=== PATIENT | female | born 1970 | race Caucasian/White ===

== ENCOUNTER → 2019-12-18 12:24 | Outpatient (CLI) | payer BC, SELFPAY ==
--- NOTE | ~2019-12-18 | MR_ITS ---
EXAMINATION: MR shoulder LT wo con DATE: 12/18/2019 13:00 INDICATION: Left shoulder pain and limited range of motion TECHNIQUE: Magnetic resonance imaging (MRI) of the left shoulder was performed without intravenous co ntrast. Sequences included axial PD-weighted FS FSE, coronal oblique PD-weighted FS FSE, coronal obli que T2-weighted FS FSE, sagittal PD-weighted FS FSE, and sagittal T1-weighted SE. COMPARISON: None. FINDINGS: Coracoacromial arch: The acromion undersurface is curved in morphology (type II). The coracoacromial ligament is normal. M inimal acromioclavicular osteoarthritis. Rotator cuff: Prior supraspinatus tendinopathy and mild anterior infraspinatus tendinopathy. Small tear at the post erior aspect of the superior facet footplate of the supraspinatus tendon appears to involve approxima tely two thirds of the tendon thickness. The intrasubstance portion of the tear measures up to 4 mm A P tapering to 1 mm in AP with the bursal surface. There is a second small fluid signal intensity tear defect measuring approximately 2 mm in maximal dimensions located approximately 1 cm medial from the footplate of the conjoined portion of the tendon. The teres minor tendon is normal. Mild subscapular is tendinopathy without discrete tear. There is thickening of the biceps jannette sling at the rotator cuff interval. Normal rotator cuff muscle bulk and signal. Biceps tendon, glenoid labrum and glenohumeral cartilage: Long head of the biceps tendon is normal. The posterior superior glenoid labrum appears diminutive bu t without discrete tear. Glenohumeral cartilage is normal. Fluid: Physiologic amount of fluid in the glenohumeral joint and biceps tendon sheath. No loose osteochondra l bodies. Moderate amount of fluid and mild synovitis in the subacromial/subdeltoid bursa consistent with moderate bursitis. Bones: Normal marrow signal with no edema, fracture or pathologic marrow replacing process. IMPRESSION: 1. Supraspinatus and mild infraspinatus tendinopathy with very small partial-thickness tears at the a rticular side of the posterior supraspinatus tendon and articular side of the slightly more medial an d posterior anterior infraspinatus tendon. No contiguous full-thickness tear defect appreciated. 2. Thickening of the superior glenohumeral ligament portion of the biceps jannette sling which can be s een with adhesive capsulitis although there is no evident thickening of the inferior capsule which is also atypical finding of adhesive capsulitis. Alternatively this could represent partial tear of the bicipital place layering. 3. Posterosuperior glenoid appears diminutive which could be either developmental or degenerative wit h no discrete tear plane appreciated. 4. Moderate subacromial/subdeltoid bursitis. Reviewed, dictated and finalized at location A. K SETTER OPERATOR IMPRESSION: 1. Supraspinatus and mild infraspinatus tendinopathy with very small partial-th ickness tears at the articular side of the posterior supraspinatus tendon and a rticular side of the slightly more medial and posterior anterior infraspinatus tendon. No contiguous full-thickness tear defect appreciated. 2. Thickening of the superior glenohumeral ligament portion of the biceps pulle y sling which can be seen with adhesive capsulitis although there is no evident thickening of the inferior capsule which is also atypical finding of adhesive capsulitis. Alternatively this could represent partial tear of the bicipital pl daniel layering. 3. Posterosuperior glenoid appears diminutive which could be either development al or degenerative with no discrete tear plane appreciated. 4. Moderate subacromial/subdeltoid bursitis.
== END ==
PROVIDERS: PCP Internal Medicine; Visit Provider Orthopaedic Surgery
DX: M75.82 Other shoulder lesions, left shoulder (principal); M75.112 Incomplete rotator cuff tear or rupture of left shoulder, not specified as traumatic; M75.52 Bursitis of left shoulder
CPT/HCPCS: 73221

== ENCOUNTER 2020-03-02 00:23 | Outpatient (CLI) | payer BC, SELFPAY ==
[2020-03-02 16:18] LABS: SARS-CoV-2 RNA PCR Negative
== END 2020-03-02 00:24 | disposition home or self-care (01) ==
PROVIDERS: PCP Family Medicine; Visit Provider Orthopaedic Surgery
DX: Z01.818 Encounter for other preprocedural examination (principal); Z11.59 Encounter for screening for other viral diseases
CPT/HCPCS: 87635; C9803; U0003

== ENCOUNTER 2020-03-02 08:57 | Outpatient (CLI) | payer BC, SELFPAY ==
--- NOTE | 2020-03-02 09:08 | ECG_ITS ---
Measurements Intervals [place] Rate: 53 P: 36 SC: 168 QRS: -3 QRSD: 93 T: 22 QT: 425 QTc: 403 Interpretive Statements SINUS BRADYCARDIA DELAYED PRECORDIAL R/S TRANSITION BORDERLINE ECG Electronically Signed On 03-02-2020 14:48:55 CDT by Timo Holder D.O.
== END 2020-03-02 08:58 | disposition home or self-care (01) ==
LOC: ANHLAB 08:58
PROVIDERS: PCP Internal Medicine; Visit Provider Anesthesiology
DX: Z01.810 Encounter for preprocedural cardiovascular examination (principal); M75.82 Other shoulder lesions, left shoulder; R00.1 Bradycardia, unspecified
CPT/HCPCS: 93005

== ENCOUNTER 2020-03-05 00:29 | Day surgery (SDC) | payer BC, SELFPAY ==
[2020-02-28 10:39] VITALS: BMI 32.7
[2020-03-05] VITALS (8 sets, daily range): BP systolic 122–140; BP diastolic 62–93; PULSE 60–67; RESP 12–20; TEMP 36.2–36.8; O2SAT 95–100
--- NOTE | 2020-03-05 07:28 | PM.HPGS ---
History of Present Illness History of Present Illness Consent: Risks, benefits, and alternatives have been discussed and questions answered. Patient agrees to proceed with procedure. Chief complaint: left partial thick rotator cuff tear, impingement Narrative: Malinda Fernandes is a 49 year old female who complains of aching pain in the lateral deltoid area. Worse with overhead activities. Complains of weakness. Also night pain. Partial temporary benefit from an injection and PT. Review of Systems Constitutional: Constitutional: Denies no additional constitutional complaints Respiratory: Respiratory: Denies cough and Denies dyspnea PMFSH Past Medical History Medical History Benign essential hypertension Rhus dermatitis Rotator cuff impingement syndrome of left shoulder Surgical History Surgical History Partial tear of left rotator cuff Family History Family History Father Acute myocardial infarction, Onset Age: 59 Family history of chronic obstructive pulmonary disease, Onset Age: 59 Grandparent Family history of malignant neoplasm Family history of renal failure Mother Patient's mother is in good health Social History Social History Smoking status: Never smoker Second hand tobacco smoke exposure: No Alcohol intake: current Gender identity (if verbalized by the patient): Female Meds Home Medications and Allergies Home Medications Medication Instructions Recorded Confirmed Type nebivolol 10 mg tablet 10 mg PO DAILY 11/03/19 03/05/20 History venlafaxine 75 mg capsule,extended 75 mg PO DAILY 11/03/19 03/05/20 History release 24 hr aspirin [Adult Low Dose Aspirin] 81 mg PO DAILY 02/28/20 02/28/20 History Allergies Allergy/AdvReac Type Severity Reaction Status Date / Time No Known Allergies Allergy Unknown Verified 03/05/20 08:42 Exam Narrative: Exam Narrative: Normal gait and station. In no distress. No clinical deformity. Exquisite tenderness at the rotator cuff insertion. Active elevation 170?. Significant painful arc of motion. External rotation 80?, internal rotation L2. No instability. No apprehension. Speed's test negative. Supraspinatus strength 4/5, external rotation strength 5/5. Pain with resistance. No effusion. No warmth or erythema. No swelling. AC joint nontender. Cross-arm test negative. Negative belly press test. Elbow full range of motion. Normal debone supervisor strength. Radial pulse palpable. Light touch sensation intact. Normal cervical spine motion without pain. Normal scapular mechanics. MRI shows Partial thickness tear of the supraspinatus, and impingment is evident. Assessment and Plan Assessment and plan (1) Partial tear of left rotator cuff: Qualifiers: Rotator cuff tear trauma status: nontraumatic Qualified Code(s): M75.112 - Incomplete rotator cuff tear or rupture of left shoulder, not specified as traumatic Code(s): M75.112 - Incomplete rotator cuff tear or rupture of left shoulder, not specified as traumatic Status: Acute (2) Rotator cuff impingement syndrome of left shoulder: Code(s): M75.42 - Impingement syndrome of left shoulder Status: Acute Additional Plan High-grade partial tear. Will consider completing the tear versus in situ repair. Possible collagen implant. Failed conservative treatment. The symptoms remain significant, including pain with activities of daily living. We discussed the conservative and alternative treatment options. The risks, benefits, and alternatives have been reviewed. The patient wishes to proceed with arthroscopic rotator cuff repair, subacromial decompression and proceed as indicated.
[2020-03-05] MEDS: LACTATED RINGERS 1,000 ML 30 ML IV CONT ×2 (08:50→11:58)
--- NOTE | 2020-03-05 08:54 | WPDANESEPPF ---
Anes - Initial Pre Proc Eval Procedure: Operation Date: 03/05/20 10:30 Proposed Procedures p Left Shoulder Arthroscopic Subacromial Decompression, Proceed As Indicated, Possible [place] - Otilio Villalobos MD Date/Time: 03/05/20 08:54 Surgeon: Otilio Villalobos MD Pre Op Diagnosis: left partial thick rotator cuff tear, impingement Patient Data Age: 49 Gender: F Height: 5 ft 6 in Weight: 94.5 kg Allergies Allergy/AdvReac Type Severity Reaction Status Date / Time No Known Allergies Allergy Unknown Verified 03/05/20 08:42 Home Medications Medication Instructions Recorded Confirmed Type nebivolol 10 mg tablet 10 mg PO DAILY 11/03/19 03/05/20 History venlafaxine 75 mg capsule,extended 75 mg PO DAILY 11/03/19 03/05/20 History release 24 hr aspirin [Adult Low Dose Aspirin] 81 mg PO DAILY 02/28/20 02/28/20 History Patient hx anesthesia problems: none Family hx anesthesia problems: none PMFSH Past Medical History Medical History Benign essential hypertension Rhus dermatitis Rotator cuff impingement syndrome of left shoulder Surgical History Surgical History Partial tear of left rotator cuff Family History Family History Father Acute myocardial infarction, Onset Age: 59 Family history of chronic obstructive pulmonary disease, Onset Age: 59 Grandparent Family history of malignant neoplasm Family history of renal failure Mother Patient's mother is in good health Social History Social History Smoking status: Never smoker Second hand tobacco smoke exposure: No Alcohol intake: current Gender identity (if verbalized by the patient): Female Anes - Eval Final PreProcedure Day of Procedure 03/05/20 08:54 Patient weight: obese Heart: regular rate and rhythm Lungs: clear to auscultation Airway: Mallampati scale class II Neurological: alert and oriented Last oral intake: >/= 8 hours ASA classification: II Emergent: no Anesthetic plan: proceed Anesthesia type and monitoring: general ETT and standard monitoring Informed Consent: The patient's anesthetic plan and its attendant risks and benefits were discussed with the patient/family/POA. Questions were solicited and answers provided to the satisfaction of the patient/family/POA.
--- NOTE | 2020-03-05 09:40 | WPDANESPNB ---
Anes - Peripheral Nerve Block Date/Time: 03/05/20 09:40 I have discussed with the patient/family/POA the placement of a peripheral nerve block for post-operative pain management, including associated risks, benefits, complications, and side effects. Alternative methods of post-operative analgesia were detailed. Questions were solicited and answers provided to the satisfaction of the patient/family/POA. Time-Out: A pre-procedural Time-Out was completed immediately before starting the procedure and confirmed: Patient Identification, Site, Procedure, Patient Position and the Availability of Requisite Equipment. Clinical Indications: Acute post-operative pain management requested by the operative surgeon. Nerve Block Insertion Note Anes-nerve block: interscalene left Patient position: supine Needle: 22 gauge, stimulating, insulated echogenic needle. Needle length: 50 mm Technique: nerve stimulation lost at (mA) (0.25) and ultrasound Injectate: bupivacaine 0.5% with epi 5 mcg/ml (30) and dexamethasone (mg) (8) Observations: tolerated well Complications: none Procedure start time:: 932 Procedure end time:: 940
[2020-03-05] MEDS: ceFAZolin 2 GM/D5W 50 ML 2 GM/50 ML BAG IVPB (09:46)
--- NOTE | 2020-03-05 12:51 | SUR.PHASEI ---
PT AWAKE AND ALERT. READY TO GET PO FLUIDS
--- NOTE | 2020-03-05 14:23 | P.OP_ITS ---
Procedure Note - Detailed Date of procedure: 03/05/20 Pre-op diagnosis: left partial thick rotator cuff tear, impingement Post-op diagnosis: other (1. Full thickness Rotator Cuff Tear 2. Subacromial impingement ) Procedure performed: 1. Arthrosocopic rotator cuff repair. 2. Arthroscopic subacromial decompression. Implants: Wray [employer] Nephew double loaded helix anchor 4.75 mm. Anesthesia: GETA and regional Surgeon: Otilio Villalobos MD Estimated blood loss (mL): 20 Complications: None Disposition: PACU Findings: Operative detail: Preoperative antibiotics were given. An interscalene block was administered in the preoperative area. The patient was bought brought to the operating room. A general anesthetic was administered. The patient was carefully positioned in the beach chair position. The head and neck were carefully positioned. The non operative extremity was also carefully positioned. The shoulder was prepped and draped in the usual sterile fashion. Examination was performed. There were no abnormal findings. Standard posterior and anterior arthroscopic portals were established. Inflow achieved with the arthroscopic pump using saline and epinephrine. The glenohumeral joint was carefully inspected. There was degen erative fraying of the superior labrum without instability. The biceps tendon was intact. Attention was turned to the subacromial space. A complete bursectomy was performed. The bursa was significantly thickened and inflamed. The rotator cuff tear was complete at this supraspinatus attachment. The exposed bone was a narrow area when viewed from the bursal side, but was a bit more significant from the articular side. There was also a small rent in the rotator cuff more medial. The rotator cuff and footprint were lightly debrided. A modest acromioplasty was performed. The tear configuration was carefully assessed. The tear appeared amenable to a single anchor with modified Holland- Connor repair. This worked very well at reapproximating the anterior and posterior aspect of the tear anatomically. The Wray and Nephew helix anchor was used 4.7 mm. A [id number] stitch was placed more medially at the split in the tendon tissue. The spinal needle was placed across the tear and a number 2 PDS suture was used as a suture shuttle. This worked very well, and obtained a better tissue bite than the antegrade Passer. The arthroscopic instruments were removed. The wounds were closed with 3-0 Monocryl subcuticular suture and steri strips. There were no complications. A sling was applied and the patient brought to the recovery room.
== END 2020-03-05 14:19 | disposition home or self-care (01) ==
PROVIDERS: PCP Internal Medicine; Visit Provider Orthopaedic Surgery
PROC: (CPT 29805; principal; 2020-03-05 10:30)
DX: M75.102 Unspecified rotator cuff tear or rupture of left shoulder, not specified as traumatic (principal); M75.42 Impingement syndrome of left shoulder; G89.18 Other acute postprocedural pain; I10 Essential (primary) hypertension; Z79.82 Long term (current) use of aspirin; E66.9 Obesity, unspecified; Z68.33 Body mass index [BMI] 33.0-33.9, adult
CPT/HCPCS: 29827; 29826; 64415; C1713; J0330; J0690; J1100; J2001; J2250; J2405; J2704; J3010; J7120

== ENCOUNTER 2020-12-28 11:55 | Observation (INO) | payer BC, SELFPAY ==
[2020-12-28] VITALS (16 sets, daily range): BP systolic 113–165; BP diastolic 63–83; PULSE 45–72; RESP 12–20; TEMP 35.8–36.4; O2SAT 94–100; BMI 35.9
--- NOTE | ~2020-12-28 | US_ITS ---
EXAMINATION: US right upper quadrant DATE: 12/28/2020 15:00 INDICATION: Right upper quadrant pain TECHNIQUE: Multiple grayscale and Doppler ultrasound images of the abdomen were obtained. COMPARISON: None available FINDINGS: The head and body of the pancreas are normal. The pancreatic tail is obscured by bowel gas. The liver demonstrates increased echogenicity, heterogenous echotexture, and decreased through trans mission. No surface nodularity. Normal hepatopetal flow in the main portal vein. The gallbladder is n ormal with no abnormal wall thickening, pericholecystic fluid or stones. The normal common bile duct measures 3 mm. There was no sonographic Shah sign. IMPRESSION: 1. No sonographic correlate for the patient's symptoms. 2. Diffuse hepatic steatosis. Reviewed, dictated and finalized at location A. RIALS CLERK
--- NOTE | ~2020-12-28 | XR_ITS ---
EXAMINATION: XR chest 1V portable EXAM DATE: 12/28/2020 12:18 INDICATION: Chest pain, shortness of breath for several weeks. High blood pressure. TECHNIQUE: Portable AP frontal chest x-ray was obtained. There is no prior study for comparison. FINDINGS: The lungs are clear. There are no pleural effusions. The cardiomediastinal silhouette is within normal limits. There is no pneumothorax suspected. The bones and soft tissues are unremarkab le. IMPRESSION: No acute cardiopulmonary findings. Reviewed, dictated and finalized at location A. SING MACHINE OPERATOR
--- NOTE | 2020-12-28 12:09 | ECG_ITS ---
Measurements Intervals [place] Rate: 48 P: 25 SD: 162 QRS: -28 QRSD: 102 T: 3 QT: 422 QTc: 377 Interpretive Statements SINUS BRADYCARDIA BORDERLINE R WAVE PROGRESSION, ANTERIOR LEADS BASELINE ARTIFACT- I, II, III ABNORMAL ECG Electronically Signed On 12-28-2020 15:04:55 CAR WHACKER by Timo Holder D.O.
[2020-12-28 12:19] LABS: Basophils Absolute Auto 0.1 K/mm3 (0.0-0.1); Eosinophils Absolute Auto 0.2 K/mm3 (0-0.3); Eosinophils Percent Auto 3.8 % (0-4.4); Hematocrit 40.5 % (37.0-47.0); Hemoglobin 13.5 g/dL (12.0-15.0); Immature Granulocyte Absolute 0.02 K/mm3 (0.00-0.031); Immature Granulocyte Percent A 0.3 % (0-0.5); Lymphocytes Absolute Auto 1.87 K/mm3 (0.9-3.2); Mean Corpuscular HGB Conc 33.3 g/dl (32-36); Mean Corpuscular Hemoglobin 29.3 pg (26-34); Mean Corpuscular Volume 87.9 fl (80-100); Mean Platelet Volume 9.8 fl (7.4-10.4); Monocytes Absolute Auto 0.6 K/mm3 (0.1-0.6); Monocytes Percent Auto 9.5 % (2.6-8.5); Neutrophils Absolute Auto 3.3 K/mm3 (1.3-6.7); Neutrophils Percent Auto 54.4 % (45.5-73.1); Platelet Count Result 352 k/mm3 (150-375); Red Blood Count 4.61 M/mm3 (4.2-5.4); Red Cell Distribution Width 13.2 % (11.5-14.5)
--- NOTE | 2020-12-28 12:26 | ED.CHESTPAIN ---
HPI - Chest Pain General Chief Complaint: Shortness of Breath/Dyspnea Stated Complaint: SOB, CP Time Seen by Provider: 12/28/20 12:15 Source: patient Mode of arrival: ambulatory Limitations: no limitations History of Present Illness HPI narrative: This is a 50 year old female with history of hypertension and DM who presents for midsternal chest pressure. This pain has been present intermittently for 1 week. She states it occurs mostly with activity. She describes pain as nonradiating pressure. She reports she currently has pain 5/10 and it has been present this she woke up this morning. She has associated sob. She denies nausea, vomiting, or diaphoresis. She reports chronic abdominal pain for several months and she was diagnosed with IBS. She has strong family history of CAD. MD complaint: chest heaviness Onset (ago): week(s) (1) Related Data Home Medications Medication Instructions Recorded Confirmed aspirin [Adult Low Dose Aspirin] 81 mg PO DAILY 02/28/20 12/28/20 Allergies Allergy/AdvReac Type Severity Reaction Status Date / Time No Known Allergies Allergy Unknown Verified 12/28/20 12:00 Review of Systems Review of Systems: All systems reviewed & are unremarkable except as noted in HPI and below Constitutional: Constitutional: Denies chills and Denies fever(s) Respiratory: Respiratory: Denies cough and Reports dyspnea Gastrointestinal: Gastrointestinal: Reports abdominal pain (chronic), Denies diarrhea, Denies nausea and Denies vomiting PMFSH Past Medical History Medical History (Updated 12/28/20 @ 18:10 by Karly Song MD) Benign essential hypertension Depression Mixed hyperlipidemia Overflow stress urinary incontinence in female Status post urethral sling. Surgical History Surgical History (Updated 12/28/20 @ 14:49 by Sunitha Carter PA-C) History of repair of left rotator cuff (~03/05/20) History of suburethral sling procedure (~02/06/17) Family History Family History Father Acute myocardial infarction, Onset Age: 59 Family history of chronic obstructive pulmonary disease, Onset Age: 59 Grandparent Family history of malignant neoplasm Family history of renal failure Mother Patient's mother is in good health Social History Social History (Updated 12/28/20 @ 14:49 by Sunitha Carter PA-C) Social History: Surrogate decision maker: Dameon Fernandes, spouse. Code status: Full code. Smoking status: Never smoker Second hand tobacco smoke exposure: No Alcohol intake: current Substance use: never Additional living arrangements comments: Resides in [place] with her . Gender identity (if verbalized by the patient): Male Spiritual care concerns: No Exam Const: General: no acute distress and alert Orientation/consciousness: patient oriented x3 Eyes: Pupils: Equal, round and reactive pupils present EOM: EOMs intact bilaterally Resp: Effort & Inspection: normal respiratory effort and no retractions Auscultation: clear to auscultation bilaterally Cardio: Rate: regular rate Rhythm: regular rhythm Heart sounds: no murmurs GI: GI Palp: Yes Soft to palpation, Yes Tenderness to palpation present (GI) (epigastric) and No Guarding due to palpation present (GI) Auscultation: normal bowel sounds Skin: General skin exam: normal color Rashes: no rashes Neuro: General: patient oriented x3, moves all extremities and CN's II-XI intact bilaterally Psych: Mental Status: mental status grossly normal Affect: normal affect Course Reevaluation(s) Reevaluation #1: I discussed with patient that labs are unremarkable. Her pain is does not necessarily sound anginal but she is high risk so will admit for observation. abdomen is benign. Date: 12/28/20 Time: 14:39 Consultations Consultation #1: I discussed case with Dr. Holder. He will consult and patient will be admitted to
[2020-12-28 12:29] LABS: INR 0.9
[2020-12-28 12:38] LABS: Partial Thromboplastin Time 21.9 SECONDS (22.3-36.8)
[2020-12-28] MEDS: ASPIRIN 81 MG CHEWABLE TABLET 324 MG PO (12:48)
[2020-12-28] MEDS: NITROGLYCERIN SL 0.4 MG TABLET SUBLINGUAL (12:49)
[2020-12-28 12:55] LABS: Alanine Aminotransferase 25 U/L (4-35); Albumin Level 4.4 g/dL (3.5-5.1); Alkaline Phosphatase 77 U/L (38-126); Aspartate Amino Transferase 30 U/L (14-36); Bilirubin,Total 0.3 mg/dL (0.2-1.3); Lipase 101 U/L (23-300)
[2020-12-28 12:56] LABS: Anion Gap 6 mmol/L (8-16); Blood Urea Nitrogen 9 mg/dL (7-17); Calcium 9.1 mg/dL (8.4-10.2); Carbon Dioxide 28 mmol/L (22-30); Chloride 104 mmol/L (98-107); Estimated CRCL calculation 84 ml/min; Estimated Glomerular Filt Rate > 60; Glucose 108 mg/dL (65-105); Potassium 4.2 mmol/L (3.4-5.0); Sodium 138 mmol/L (137-145)
--- NOTE | 2020-12-28 12:58 | PC.NURSE ---
Patient reports chest pain still at 5 after first dose of nitro SL. Second dose given at this time.
[2020-12-28 13:01] LABS: D Dimer 0.31 ug/mL (<0.48)
[2020-12-28 13:06] LABS: Troponin I < 0.012 ng/mL (0.000-0.034)
--- NOTE | 2020-12-28 13:07 | PC.NURSE ---
Patient states no improvement in chest pain after second dose of nitro. Current VS 47 AK, 97% RA, RR 16 with BP 97/66. Dr. Song notified and no 3rd dose given for hypotension. Patient now c/o abdominal pain (PMH of IBS) and headache.
[2020-12-28] MEDS: LACTATED RINGERS 1,000 ML 999 ML IV CONT (13:26)
[2020-12-28] MEDS: PANTOPRAZOLE SODIUM IV 40 MG VIAL IV PUSH (13:26)
[2020-12-28] MEDS: BELLADONNA ALK/PHENOB ELIX 10 ML, MAG HYDROX/ALUMINUM HYD/SIMETH 30 ML, LIDOCAINE HCL 2... PO (13:26)
[2020-12-28] MEDS: ONDANSETRON INJ 4 MG/2 ML VIAL IV PUSH (14:27)
[2020-12-28] MEDS: MORPHINE SULFATE (*CRX) 4 MG/ML INJ 6 MG IV PUSH (14:28)
--- NOTE | 2020-12-28 15:57 | PC.NURSE ---
This patient, Malinda Fernandes, was admitted to IMU Room 204-01. Patient/family oriented to hospital policies and general routines including ID bracelet, bed and alarms, visiting hours, pain management, procedures, bathroom and other care routines, personal items, smoking policy, room service/diet, and visiting hours. Information on how to activate the Rapid Response Team has been discussed. Patient/Family are encouraged to report perceived risks to care and to ask questions if they do not understand what they are told or what they should do.
--- NOTE | 2020-12-28 16:00 | PM.IMHP ---
H&P: HPI History of Present Illness Date/Time: 12/28/20 16:00 Chief Complaint: Chest pain. Narrative: This is a 50-year-old female with hypertension, hyperlipidemia, GERD, and depression who presented to the emergency department earlier today for evaluation of chest pain. Over the past 1 week she has had intermittent midsternal chest pressure that occurs mainly with activity associated with mild shortness of breath. The pain does not radiate and she gives no significant alleviating factors aside from rest. Nitroglycerin provided no benefit but morphine did take the edge off. She has frequent nausea due to chronic abdominal discomfort for which she has been diagnosed with irritable bowel syndrome. She does suffer from GERD however reports that this discomfort that she is having is not at all similar to that of indigestion. In fact she was given a GI cocktail in the emergency department which helped her GERD however had no affect on the chest pressure. She denies associated vomiting, sweats, and dizziness. She has not had syncope or near syncope. No pleuritic pain, palpitations, orthopnea, PND, or lower extremity edema. Review of Systems Review of Systems: Narrative: Twelve systems were reviewed with pertinent positives and negatives as per HPI. The patient has chronic abdominal discomfort for which she has been diagnosed with IBS. It sounds like she has frequent loose stools and nausea. She uses Pepto every day or every other day for that with some benefit. She has never had an endoscopy. No melena or hematochezia. No known history of peptic ulcers. Last menstrual period was 1 week ago. Except as documented, all other systems were reviewed and are negative. [facility] Past Medical History Medical History (Updated 12/28/20 @ 23:56 by Sunitha Carter PA-C) Benign essential hypertension Depression Gastroesophageal reflux disease Mixed hyperlipidemia Overflow stress urinary incontinence in female Status post urethral sling. Surgical History Surgical History (Updated 12/28/20 @ 23:54 by Sunitha Carter PA-C) History of laparoscopy X2 History of left oophorectomy History of repair of left rotator cuff (~03/05/20) History of suburethral sling procedure (~02/06/17) Family History Family History Father Acute myocardial infarction, Onset Age: 59 Family history of chronic obstructive pulmonary disease, Onset Age: 59 Grandparent Family history of malignant neoplasm Family history of renal failure Mother Patient's mother is in good health Social History Social History (Updated 12/28/20 @ 23:54 by Sunitha Carter PA-C) Social History: Surrogate decision maker: Dameon Fernandes, spouse. Code status: Full code. Smoking status: Never smoker Second hand tobacco smoke exposure: No Alcohol intake: current Substance use: never Additional living arrangements comments: Resides in [place] with her . They have 2 children. Additional occupation/education comments: Not working currently. Spiritual care concerns: No Meds Home Medications and Allergies Home Medications Medication Instructions Recorded Confirmed Type aspirin [Adult Low Dose Aspirin] 81 mg PO DAILY 02/28/20 12/28/20 History venlafaxine 75 mg capsule,extended See Rx Instructions .ROUTE 11/04/20 12/28/20 Rx release 24 hr .COMPLEX #90 cap simvastatin 20 mg tablet 20 mg PO QPM #90 tablet 11/20/20 12/28/20 Rx atenolol 50 mg tablet 50 mg PO DAILY #90 tablet 11/21/20 12/28/20 Rx Allergies Allergy/AdvReac Type Severity Reaction Status Date / Time No Known Allergies Allergy Unknown Verified 12/28/20 12:00 Vital Signs Vital Signs - 24 hr 12/28/20 11:58 12/28/20 12:03 12/28/20 12:49 Temperature 97.6 F Pulse Rate 51 L 50 L 57 L Respiratory Rate 18 16 Blood Pressure 165/83 H 133/80 Pulse Oximetry 99 97 12/28/20 12:57 12/28/20 13:5
--- NOTE | 2020-12-28 16:04 | PM.CNCAR ---
Assessment and Plan Assessment and plan (1) Chest pressure: Code(s): R07.89 - Other chest pain Status: Acute Assessment and Plan: Could be due to CAD, or JER or musculoskeletal. Needs 2 more sets of troponins to rule outfor TN. If she is ruled out and her chest pain resolved, we can let her go home tomorrow to have outpatient stress test. (2) Mixed hyperlipidemia: Code(s): E78.2 - Mixed hyperlipidemia Status: Acute Assessment and Plan: On Simvastatin. (3) Benign essential hypertension: Code(s): I10 - Essential (primary) hypertension Status: Acute Assessment and Plan: Stable. (4) Hypersomnia: Code(s): G47.10 - Hypersomnia, unspecified Status: Acute Assessment and Plan: Apnea link to screen for JER. She will need formal outpatient sleep study. (5) Fatigue: Code(s): R53.83 - Other fatigue Status: Acute Assessment and Plan: Could be due to undiagnosed sleep apnea or bradycardia. Bradycardia probably due to beta blockade. Would decrease Atenolol 25 mg daily due to bradycardia/fatigue. If BP is still high, then would start her on Amlodipine. History of Present Illness History of Present Illness Consult date/time: 12/28/20 16:04 Reason for consult: Chest pain. 50 yr old woman admitted through ED for chest pain. She has a history of hypertension, dyslipidemia, family history of CAD with her father having CABG and her brother with CAD. Reports that she has intermittent mid chest pressure for 1 week. It is worse with activity during the day and better at night while resting. It is associated with sob. Currently it is 3/10 in intensity. Reports fatigue and feeling tired all the time. States she used to be on Bystolic until 1 month ago when it was changed to Atenolol. Admits to snoring, and states he at times sees her gasping while sleeping, wakes up and daytime sleepiness. Normally she can walk 1-2 blocks and limited by GUZMAN. Reports chronic intermittent abdominal pain for last 6 months. In ED, EKG shows sinus cha, BRWP, CXR normal. CBC, CMP and 1st troponin normal. Reason For Visit: Chest Pain, Abdominal Pain Review of Systems Review of Systems: All systems reviewed & are unremarkable except as noted in HPI and below Constitutional: Constitutional: Reports as per HPI, Denies chills, Reports daytime sleepiness, Reports difficulty sleeping, Denies fatigue and Reports snoring Cardiovascular: Cardiovascular: Reports as per HPI, Reports chest pain and Denies lightheadedness Respiratory: Respiratory: Reports as per HPI and Reports dyspnea Gastrointestinal: Gastrointestinal: Reports as per HPI and Reports abdominal pain Genitourinary: Genitourinary: Reports as per HPI and Denies dysuria Musculoskeletal: Musculoskeletal: Reports as per HPI Neurologic: Reports as per HPI, Denies dizziness and Denies syncope [facility] Past Medical History Medical History (Updated 12/28/20 @ 16:10 by Timo Holder DO) Benign essential hypertension Depression Mixed hyperlipidemia Overflow stress urinary incontinence in female Status post urethral sling. Surgical History Surgical History (Updated 12/28/20 @ 14:49 by Sunitha Carter PA-C) History of repair of left rotator cuff (~03/05/20) History of suburethral sling procedure (~02/06/17) Family History Family History Father Acute myocardial infarction, Onset Age: 59 Family history of chronic obstructive pulmonary disease, Onset Age: 59 Grandparent Family history of malignant neoplasm Family history of renal failure Mother Patient's mother is in good health Social History Social History (Updated 12/28/20 @ 14:49 by Sunitha Carter PA-C) Social History: Surrogate decision maker: Dameon Fernandes, spouse. Code status: Full code. Smoking status: Never smoker Second hand tobacco smoke exposure:
[2020-12-28 16:48] LABS: Troponin I < 0.012 ng/mL (0.000-0.034)
[2020-12-28 18:45] LABS: Troponin I < 0.012 ng/mL (0.000-0.034)
[2020-12-28] MEDS: FAMOTIDINE 20 MG/2 ML VIAL IV PUSH (19:56)
[2020-12-28] MEDS: SIMVASTATIN 20 MG TABLET PO (21:37)
[2020-12-29] VITALS (9 sets, daily range): BP systolic 123–135; BP diastolic 60–78; PULSE 46–70; RESP 16; TEMP 36.1–36.6; O2SAT 97–99
[2020-12-29 06:20] LABS: Basophils Absolute Auto 0.1 K/mm3 (0.0-0.1); Basophils Percent Auto 1.2 % (0.2-1.2); Eosinophils Absolute Auto 0.2 K/mm3 (0-0.3); Eosinophils Percent Auto 3.4 % (0-4.4); Hematocrit 39.4 % (37.0-47.0); Hemoglobin 12.8 g/dL (12.0-15.0); Immature Granulocyte Absolute 0.02 K/mm3 (0.00-0.031); Immature Granulocyte Percent A 0.3 % (0-0.5); Lymphocytes Percent Auto 37.4 % (18.3-44.2); Mean Corpuscular HGB Conc 32.5 g/dl (32-36); Mean Corpuscular Hemoglobin 29.8 pg (26-34); Mean Corpuscular Volume 91.8 fl (80-100); Mean Platelet Volume 9.7 fl (7.4-10.4); Monocytes Absolute Auto 0.6 K/mm3 (0.1-0.6); Monocytes Percent Auto 9.8 % (2.6-8.5); Neutrophils Absolute Auto 2.8 K/mm3 (1.3-6.7); Neutrophils Percent Auto 47.9 % (45.5-73.1); Platelet Count Result 306 k/mm3 (150-375); Red Blood Count 4.29 M/mm3 (4.2-5.4); Red Cell Distribution Width 13.6 % (11.5-14.5); White Blood Count 5.9 K/mm3 (4.5-10.0)
[2020-12-29 06:34] LABS: Alanine Aminotransferase 21 U/L (4-35); Albumin Level 3.9 g/dL (3.5-5.1); Alkaline Phosphatase 68 U/L (38-126); Anion Gap 4 mmol/L (8-16); Aspartate Amino Transferase 26 U/L (14-36); Bilirubin,Total 0.3 mg/dL (0.2-1.3); Blood Urea Nitrogen 10 mg/dL (7-17); Calcium 8.4 mg/dL (8.4-10.2); Carbon Dioxide 29 mmol/L (22-30); Chloride 106 mmol/L (98-107); Estimated CRCL calculation 77 ml/min; Estimated Glomerular Filt Rate > 60; Glucose 111 mg/dL (65-105); Potassium 4.4 mmol/L (3.4-5.0); Sodium 139 mmol/L (137-145)
--- NOTE | 2020-12-29 09:27 | PM.PNCARD ---
Progress Note: A&P Assessment and Plan (1) Chest pressure: Code(s): R07.89 - Other chest pain Status: Acute Assessment and Plan: Could be due to CAD, or JER or musculoskeletal. She has been rule out for myocardial infarction. NTG in ED had no effect on chest pain per patient. The screening apnea link was essentially normal. Due to persistent chest pain, discussed with patient that we can either keep her until tomorrow for a stress test, or we can discharge her home and have her do a stress test as an outpatient later in the week. She wanted to discuss this with her first and let us know. (2) Mixed hyperlipidemia: Code(s): E78.2 - Mixed hyperlipidemia Status: Acute Assessment and Plan: On Simvastatin. (3) Benign essential hypertension: Code(s): I10 - Essential (primary) hypertension Status: Acute Assessment and Plan: Stable. (4) Hypersomnia: Code(s): G47.10 - Hypersomnia, unspecified Status: Acute Assessment and Plan: Apnea link to screen for JER. She will need formal outpatient sleep study. (5) Fatigue: Code(s): R53.83 - Other fatigue Status: Acute Assessment and Plan: Could be due to undiagnosed sleep apnea or bradycardia. Bradycardia probably due to beta blockade. Decreased Atenolol 25 mg daily due to bradycardia/fatigue. If BP is still high, then would start her on Amlodipine. Subjective Date/time seen: 12/29/20 09:27 Patient still has 3/10 mid chest pressure. No sob. Exam Const: General: cooperative, healthy appearing and comfortable Resp: Auscultation: clear to auscultation bilaterally, no crackles, no rales, no rhonchi and no wheezes Cardio: Jugular venous distension: no JVD Rate: regular rate Rhythm: regular rhythm Heart sounds: no murmurs Peripheral pulses: dorsalis pedis present GI: GI Palp: Yes abdominal tenderness and Yes Soft to palpation Neuro: General: oriented to person, oriented to place and oriented to time Extrem: Right lower extremity: no edema Left lower extremity: no edema Objective Data Vital Signs Vital Signs: Vital Signs - 24 hr 12/28/20 11:58 12/28/20 12:03 12/28/20 12:49 Temperature 97.6 F Pulse Rate 51 L 50 L 57 L Respiratory Rate 18 16 Blood Pressure 165/83 H 133/80 Pulse Oximetry 99 97 12/28/20 12:57 12/28/20 13:57 12/28/20 14:31 Temperature Pulse Rate 61 48 L 53 L Respiratory Rate 16 14 18 Blood Pressure 118/70 113/68 139/78 Pulse Oximetry 95 99 100 12/28/20 14:58 12/28/20 15:35 12/28/20 16:00 Temperature 97.6 F 96.5 F L Pulse Rate 48 L 49 L Respiratory Rate 12 20 Blood Pressure 133/82 141/72 H Pulse Oximetry 96 97 12/28/20 18:00 12/28/20 19:33 12/28/20 20:00 Temperature 97 F L Pulse Rate 49 L 50 L 50 L Respiratory Rate 18 18 Blood Pressure 135/68 Pulse Oximetry 97 12/28/20 21:24 12/28/20 22:09 12/28/20 23:30 Temperature 96.9 F L Pulse Rate 72 54 L 51 L Respiratory Rate 16 Blood Pressure 126/63 Pulse Oximetry 94 97 12/28/20 23:37 12/29/20 00:00 12/29/20 02:00 Temperature Pulse Rate 51 L 50 L 52 L Respiratory Rate 16 Blood Pressure Pulse Oximetry 97 12/29/20 04:00 12/29/20 05:54 12/29/20 08:00 Temperature 96.9 F L 98 F Pulse Rate 50 L 46 L 70 Respiratory Rate 16 16 Blood Pressure 123/60 135/78 Pulse Oximetry 97 99 Intake/Output Intake/Output: Intake & Output 12/26/20 12/27/20 12/28/20 12/29/20 23:59 23:59 23:59 23:59 Intake Total 1540 300 Output Total 600 Balance 940 300 Meds/Results Medications: Active Medications Generic Name Dose Route Start Last Admin Trade Name Freq PRN Reason Stop Dose Admin Aspirin 81 mg 12/29/20 09:00 Aspirin 81 Mg Enteric Tablet PO DAILY BERNADETTE Atenolol 25 mg 12/29/20 09:00 Atenolol 25 Mg Tablet PO DAILY BERNADETTE Famotidine 20 mg 12/28/20 21:00 12/28/20 19:56 Famotidine 20 Mg/2 Ml Vial IV PUSH
[2020-12-29] MEDS: atenoloL 25 MG TABLET PO (10:08)
[2020-12-29] MEDS: FAMOTIDINE 20 MG/2 ML VIAL IV PUSH (10:09)
[2020-12-29] MEDS: ASPIRIN 81 MG ENTERIC TABLET PO (10:09)
[2020-12-29] MEDS: VENLAFAXINE HCL XR 75 MG CAP.ER.24H PO (10:09)
[2020-12-29] MEDS: ACETAMINOPHEN 325 MG TABLET 650 MG PO (11:56)
--- NOTE | 2020-12-29 12:44 | PM.DS ---
DS: Admitting Diagnosis Admitting Diagnosis Admitting Diagnosis: Chest pain DS: Discharge Diagnosis Discharge Diagnosis (1) Chest pressure: Code(s): R07.89 - Other chest pain Status: Acute Assessment and Plan: Presented with 1 week of midsternal chest pressure, worsened with activity. She has family history of ME and risk factors for cardiac disease. Troponins negative x3. EKG reviewed. Etiology for this is not clear and considerations include CAD, JER, musculoskeletal origin, or GERD. CXR with no acute findings. PE unlikely given normal D-dimer and absence of tachycardia, tachypnea, or hypoxia. She was seen in consultation by Cardiology. Dr. Holder recommended stress test which she wished to pursue as an outpatient. She will need to follow up with Dr. Holder's office on 12/30/20, to schedule testing. (2) Bradycardia: Code(s): R00.1 - Bradycardia, unspecified Status: Acute Assessment and Plan: Sinus bradycardia secondary to beta blockade. Her atenolol was decreased from 50 mg daily to 25 mg daily. (3) Benign essential hypertension: Code(s): I10 - Essential (primary) hypertension Status: Acute Assessment and Plan: Blood pressures reviewed and were well controlled. Continue atenolol. (4) Gastroesophageal reflux disease: Code(s): K21.9 - Gastro-esophageal reflux disease without esophagitis Status: Acute Assessment and Plan: She reports daily GERD symptoms. She received a GI cocktail in the ED which she reported did improve her symptoms but did not have any affect on chest pressure. I initiated her on Pepcid 20 mg bid. GERD is less likely to be the cause of her chest pain, but it is possible scheduled acid suppressants may improve symptoms. If she continues to have persistent GERD symptoms, she may need to undergo EGD, which we discussed. (5) Hypersomnia: Code(s): G47.10 - Hypersomnia, unspecified Status: Acute Assessment and Plan: Possible that JER may contribute to symptoms. She had an apnea link which was not indicative of pathologic breathing disorder, however will still need to undergo formal sleep study evaluation. (6) Mixed hyperlipidemia: Code(s): E78.2 - Mixed hyperlipidemia Status: Acute Assessment and Plan: Continue simvastatin. DS: Summary Hospital Course Reason for hospitalization: Chest Tightness Hospital Course: Date of admission: 12/28/20 Date of discharge: 12/29/20 Malinda Fernandes is a 50-year-old female with hypertension, hyperlipidemia, GERD, and depression who presented to the emergency department on 12/28/20 with complaints of intermittent, midsternal chest pressure ongoing for approximately 1 week which is exacerbated by activity. Upon presentation to the emergency department, her BP was slightly elevated with additional vital signs stable, CBC unremarkable, electrolytes stable, troponin negative, d-dimer 0.31, EKG showed sinus bradycardia with no significant ST changes, CXR with no acute cardiopulmonary findings, and RUQ US with no correlate for symptoms. She was admitted to the hospitalist service and seen in consultation by cardiology. Please see above for further details. Her pain improved slightly, however still persisted. Stress testing recommended. She was offered to stay overnight and obtain stress test on Wednesday morning or return home and schedule outpatient. She opted to return home and felt she could manage her symptoms comfortably at home. She will contact Dr. Holder's office on Wednesday to set up further evaluation. Given stable findings, she was determined to no longer require inpatient care and felt to be stable for discharge. I discussed at length with her and her worrisome signs and symptoms for which to return and she was educated on her medications. She understands need for prompt cardiology follow up. She was discharged in hemodynamically stable condition on 12/29/20. Sta
== END 2020-12-29 13:10 | disposition home or self-care (01) ==
LOC: ANHED 12:47 → ANHIMU 18:10
PROVIDERS: Admitting Provider Family Medicine; Emergency Provider General Practice; PCP Internal Medicine; Visit Provider Internal Medicine
DX: R07.89 Other chest pain (principal); R00.1 Bradycardia, unspecified; I10 Essential (primary) hypertension; K21.9 Gastro-esophageal reflux disease without esophagitis; G47.10 Hypersomnia, unspecified; E78.2 Mixed hyperlipidemia; Z82.49 Family history of ischemic heart disease and other diseases of the circulatory system
CPT/HCPCS: 36415; 71045; 76705; 80048; 80053; 80076; 83690; 84484; 85025; 85380; 85610; 85730; 93005; 94762; 96361; 96374; 96375; 96376; 99285; A9270; C9113; G0378; J0131; J2270; J2405; J7120

== ENCOUNTER 2021-02-18 09:23 | Outpatient (CLI) | payer BC, SELFPAY ==
--- NOTE | 2021-02-18 09:25 | ECHO_ITS ---
Patient Info Name: Malinda Fernandes Age: 50 years : 1970 Gender: Female Ht: 65 in Wt: 205 lbs BSA: 2.10 m2 HR: 52 bpm BP: 146 / 99 mmHg Technical Quality: Fair Exam Date: 02/18/2021 9:35 AM Exam Location: [facility] Patient Status: Outpatient Admit Date: 02/18/2021 Staff Ordering Physician: Timo Holder DO Liner Checker: Eloisa Penaloza RDCS Attending Provider: Timo Holder DO Referring Physician: Gallo RIBEIRO; Exam Type: CA echo doppler color flow Study Info Indications R07.89 - Other chest pain Complete two-dimensional, color flow and Doppler transthoracic echocardiogram is performed. Summary 1. Complete two-dimensional, color flow and Doppler transthoracic echocardiogram is performed. 2. Left ventricular chamber dimension is normal. 3. Left ventricular systolic function is normal, estimated at 55-60%. 4. The left ventricular diastolic function is normal. 5. E/e' 9 is minimally elevated. Left Ventricle E/e' 9 is minimally elevated. Left ventricular chamber dimension is normal. Left ventricular systolic function is normal, estimated at 55-60%. The left ventricular diastolic function is normal. Right Ventricle Right ventricular chamber dimension is normal. Right ventricular systolic function is normal. Left Atria Left atrial chamber dimension is normal. Right Atria Right atrial chamber dimension is normal. Aortic Valve The aortic valve is trileaflet. There is no aortic valve stenosis. There is no aortic valve regurgitation. Pulmonic Valve There is no pulmonic regurgitation. Mitral Valve There is no mitral valve stenosis. There is no mitral valve regurgitation. Tricuspid Valve There is no tricuspid valve regurgitation. Pericardium/Pleural There is no pericardial effusion. Inferior Vena Cava Normal inferior vena cava with >50% collapse upon inspiration consistent with normal right atrial pressure, 5 mmHg. Aorta The aortic root size at the sinus of Valsalva is normal. Left Ventricular Outflow Tract Name Value Normal LVOT 2D LVOT Diameter 2.0 cm LVOT Doppler LVOT Peak Gradient 3 mmHg LVOT Mean Gradient 2 mmHg LVOT VTI 20 cm LVOT VTI/AV VTI Ratio 0.8 LVOT Stroke Volume 60 ml LVOT CO 3.3 l/min LVOT CI 1.6 l/min/m2 Pulmonic Valve Name Value Normal RVOT Doppler RVOT Peak Gradient 1 mmHg PV Doppler PV Peak Gradient 2 mmHg Mitral Valve Name Value Normal ---------
== END 2021-02-18 09:24 | disposition home or self-care (01) ==
PROVIDERS: PCP Internal Medicine; Visit Provider Internal Medicine Cardiovascular Disease
DX: R07.89 Other chest pain (principal)
CPT/HCPCS: 93306

== ENCOUNTER 2021-02-28 07:33 | Outpatient (CLI) | payer BC, SELFPAY ==
--- NOTE | 2021-03-14 17:38 | WPDHOMESLEEP ---
Sleep Study - Home Unattended Date of Study: 02/28/21 Ordering Provider: Timo Holder DO Interpreting Provider: Yara Rico MD Home Sleep Study Type: Watch PAT Height: 1.65 m Weight: 95.254 kg Body Mass Index: 34.9 Neck Circumference (inches): 15 Omro: 13 Reason for Sleep Study Hypersomnolence Sleep History Malinda Fernandes is a 50 year old female with hypertension who was evaluated for chest pain which is worse with exertion. Dr. Holder referred her for a home sleep test due to hypersomnia. She does not feel rested on waking. She does not awaken from sleep feeling short of breath. He rarely wakes at night with heartburn, belching and coughing. She has occasional snoring, and it is occasionally loud enough that others complain about it. He occasionally has trouble sleeping with a cold. he rarely wakes up gasping for breath at night, and rarely has breathing problems at night witnessed by others. He frequently sweats excessively at night. He rarely notices his heart beating irregularly at night. She frequently falls asleep during the day, rarely involuntarily and she never falls asleep while driving. She does not have loss of muscle tone with strong emotion. She does not have daytime difficulties due to his excessive sleepiness. She does not feel paralyzed on waking or falling asleep and she does not have vivid dreamlike scenes upon awakening or falling asleep. She does not feel afraid to go to sleep. She does not have nightmares. She occasionally remembers her dreams. She rarely has racing thoughts. She frequently feels sad and depressed. She constantly has anxiety. She rarely has muscular tension. She does not notice parts her body jerking. She does not kick at night. She does not have crawling or aching feelings in her legs and does not have any kind of leg pain at night. There is no morning jaw pain. She occasionally grinds her teeth during sleep. She rarely is bothered by pain during the day, rarely is awakened by pain at night. She constantly wakes up feeling stiff in the morning rarely was sore or achy muscles and rarely with pain in the neck and spine. She has headaches, fatigue and she takes and acids regularly. She has depression. Normal beditme is 9:00 p.m. falling asleep within an hour typically waking 2-3 times at night for 5-10 minutes. She wakes in the morning by 8 or 8:30 a.m.. Her weekend schedule is the same. She estimates getting 7 8 hours of sleep at night. She takes naps in kilo afternoon or evening, however a short nap is not refreshing. she is drowsy for 3 hours after waking. Habits: Never smoked tobacco. Caffeine 2 cans a day. No alcohol or recreational drugs. [facility] Past Medical History Medical History Benign essential hypertension Depression Gastroesophageal reflux disease Mixed hyperlipidemia Overflow stress urinary incontinence in female Status post urethral sling. Surgical History Surgical History History of laparoscopy X2 History of left oophorectomy History of repair of left rotator cuff (~03/05/20) History of suburethral sling procedure (~02/06/17) Family History Family History Father Acute myocardial infarction, Onset Age: 59 Family history of chronic obstructive pulmonary disease, Onset Age: 59 Grandparent Family history of malignant neoplasm Family history of renal failure Mother Patient's mother is in good health Social History Social History Social History: Surrogate decision maker: Dameon Fernandes, spouse. Code status: Full code. Smoking status: Never smoker Second hand tobacco smoke exposure: No Alcohol intake: current Substance use: never Additional living arrangements comments: Resides in [facility]
[2021-03-14 17:40] VITALS: BMI 34.9
== END 2021-02-28 07:34 | disposition home or self-care (01) ==
LOC: ANHCSM 07:33
PROVIDERS: PCP Internal Medicine; Visit Provider Internal Medicine Cardiovascular Disease
DX: G47.10 Hypersomnia, unspecified (principal); R06.83 Snoring
CPT/HCPCS: 95800

== ENCOUNTER 2022-10-26 12:31 | Emergency (ER) | payer OTHER, SELFPAY ==
[2022-10-26 14:16] VITALS: BP 147/97; PULSE 103; RESP 16; TEMP 37.3; O2SAT 97
--- NOTE | 2022-10-26 14:52 | ED.URI ---
HPI - URI/Sore Throat General Chief Complaint: Upper Respiratory Infection Stated Complaint: cough, sore throat, congestion Time Seen by Provider: 10/26/22 14:50 Source: patient and RN notes reviewed Mode of arrival: ambulatory Limitations: no limitations History of Present Illness HPI Narrative: 51-year-old female presented for complaint of cough for over 8 days. She also endorses sore throat, sinus congestion and severe headache associated with a cough. She denies sob, wheezing, nausea, vomiting, diarrhea, fevers or chills. She denies known sick contacts. She is taking Mucinex for symptoms. MD elicited complaint: cough Related Data Home Medications Medication Instructions Recorded Confirmed aspirin 81 mg tablet,delayed 81 mg PO DAILY 02/28/20 10/26/22 release (Adult Low Dose Aspirin) Allergies Allergy/AdvReac Type Severity Reaction Status Date / Time No Known Allergies Allergy Unknown Verified 10/26/22 14:21 Review of Systems Review of Systems: per HPI [facility] Past Medical History Medical History Benign essential hypertension Depression Gastroesophageal reflux disease Mixed hyperlipidemia Overflow stress urinary incontinence in female Status post urethral sling. Surgical History Surgical History History of laparoscopy X2 History of left oophorectomy History of repair of left rotator cuff (~03/05/20) History of suburethral sling procedure (~02/06/17) Family History Family History Father Acute myocardial infarction, Onset Age: 59 Family history of chronic obstructive pulmonary disease, Onset Age: 59 Grandparent Family history of malignant neoplasm Family history of renal failure Mother Patient's mother is in good health Social History Social History Social History: Surrogate decision maker: Dameon Fernandes, spouse. Code status: Full code. Smoking status: Never smoker Second hand tobacco smoke exposure: No Alcohol intake: current Substance use: never Additional living arrangements comments: Resides in [place] with her . They have 2 children. Additional occupation/education comments: Not working currently. Spiritual care concerns: No Exam Narrative: GENERAL: Ill-appearing, nontoxic EYES: PERRLA, conjunctivae clear ENT: Mucous membranes moist. TMs pearly kemp with dull light reflex bilaterally; no tragal tenderness. Oropharynx erythematous without lesions or exudate CHEST: Expiratory wheezing noted to bilateral bases. No respiratory distress, speaks in full sentences. HEART: Regular rate and rhythm. No murmur heard. SKIN: Warm, dry, no rash. NEURO: Alert and oriented x3. PSYCH: Normal mood and affect Course Course Emergency Course: Patient is aware of diagnosis, understands and agrees to treatment plan. Anticipatory guidance given. Patient agrees to follow-up as directed and is aware of reasons to seek care at the emergency department. Portions of this record may have been created with voice recognition software Level of Care: Express Care Visit Vital Signs Vital signs: Vital Signs Temperature 99.2 F 10/26/22 14:16 Pulse Rate 103 H 10/26/22 14:16 Respiratory Rate 16 10/26/22 14:16 Blood Pressure 147/97 H 10/26/22 14:16 Pulse Oximetry 97 10/26/22 14:16 Oxygen Delivery Room Air 10/26/22 14:16 Temperature 99.2 F 10/26/22 14:16 Pulse Rate 103 H 10/26/22 14:16 Respiratory Rate 16 10/26/22 14:16 Blood Pressure 147/97 H 10/26/22 14:16 Pulse Oximetry 97 10/26/22 14:16 Oxygen Delivery Room Air 10/26/22 14:16 reviewed MDM - URI/Sore Throat MDM Narrative Medical decision making narrative: Advised supportive measures and signs/symptoms to go to the ER. Pt is appropriate f
== END 2022-10-26 15:00 | disposition home or self-care (01) ==
PROVIDERS: Emergency Provider Nurse Practitioner Family; PCP Family Medicine
DX: J06.9 Acute upper respiratory infection, unspecified (principal); I10 Essential (primary) hypertension; K21.9 Gastro-esophageal reflux disease without esophagitis; E78.2 Mixed hyperlipidemia; Z79.82 Long term (current) use of aspirin
CPT/HCPCS: 99213; G0463

== ENCOUNTER 2022-11-19 09:06 | Outpatient (CLI) | payer OTHER, SELFPAY ==
[2022-11-19 20:10] LABS: Alanine Aminotransferase 29 U/L (6-35); Albumin Level 4.6 g/dL (3.5-5.1); Alkaline Phosphatase 98 U/L (38-126); Anion Gap 8 mmol/L (8-16); Aspartate Amino Transferase 40 U/L (14-36); Bilirubin,Total 0.4 mg/dL (0.2-1.3); Blood Urea Nitrogen 13 mg/dL (7-17); Carbon Dioxide 30 mmol/L (22-30); Chloride 101 mmol/L (98-107); Cholesterol 170 mg/dL (0-200); Estimated Glomerular Filt Rate > 60; Glucose 110 mg/dL (65-110); HDL Direct 40 mg/dL; Potassium 4.3 mmol/L (3.4-5.0); Sodium 139 mmol/L (137-145); Triglycerides 152 mg/dL (<150)
[2022-11-19 20:21] LABS: LDL Cholesterol Direct 85 mg/dL
[2022-11-19 21:35] LABS: Hemoglobin A1C 6.3 % (<5.7)
== END 2022-11-19 09:07 | disposition home or self-care (01) ==
LOC: ANHGOSHLAB 09:06
PROVIDERS: PCP Family Medicine; Visit Provider Family Medicine
DX: E78.2 Mixed hyperlipidemia (principal); I10 Essential (primary) hypertension; Z13.29 Encounter for screening for other suspected endocrine disorder; R73.03 Prediabetes
CPT/HCPCS: 36415; 80053; 80061; 83036; 84443

== ENCOUNTER 2022-12-28 09:00 | Outpatient (NON) | payer OTHER, SELFPAY | END 2022-12-28 09:01 | disposition home or self-care (01) | LOC: ANHLAB 12-29 10:09 | PROVIDERS: PCP Family Medicine; Visit Provider Internal Medicine Gastroenterology | DX: Z12.11 Encounter for screening for malignant neoplasm of colon (principal) | CPT/HCPCS: 88305 ==

== ENCOUNTER 2022-12-28 11:16 | Day surgery (SDC) | payer OTHER, SELFPAY ==
[2022-11-23 07:26] VITALS: BMI 35.0
[2022-12-17 10:47] VITALS: BMI 34.4
[2022-12-28 11:35] VITALS: BP 134/99; PULSE 70; RESP 20; TEMP 36.8; O2SAT 99
--- NOTE | 2022-12-28 11:47 | WPDANESEPPF ---
Anes - Initial Pre Proc Eval Procedure: Operation Date: 12/28/22 13:00 Proposed Procedures p Screening Colonoscopy - Yuri Cota MD Date/Time: 12/28/22 11:47 Surgeon: Yuri Cota MD Pre Op Diagnosis: Neoplasm Screening Patient Data Age: 52 Gender: F Height: 1.68 m Weight: 97 kg Allergies Allergy/AdvReac Type Severity Reaction Status Date / Time No Known Allergies Allergy Unknown Verified 12/28/22 11:46 Home Medications Medication Instructions Recorded Confirmed Type aspirin 81 mg tablet,delayed 81 mg PO DAILY 02/28/20 12/28/22 History release (Adult Low Dose Aspirin) venlafaxine 75 mg capsule,extended 75 mg PO DAILY 11/19/22 12/28/22 History release 24 hr atorvastatin 20 mg tablet 20 mg PO DAILY 12/14/22 12/28/22 History atenolol 25 mg tablet 25 mg PO DAILY #90 tabs 12/16/22 12/28/22 Rx acidophilus 100 million 1 cap PO DAILY 12/17/22 12/28/22 History cell-pectin, citrus 10 mg capsule alendronate 70 mg-cholecalciferol 1 tablet PO WEEKLY 12/17/22 12/28/22 History (vitamin D3) 2,800 unit tablet multivit with minerals-iron 18 1 tablet PO DAILY 12/17/22 12/28/22 History mg-folic ac 400 mcg-vit K 25 mcg tablet (Adults Multivitamin) vitamin B complex (B 1 tablet PO DAILY 12/17/22 12/28/22 History Complex-Vitamin B12 tablet) Patient hx anesthesia problems: none Family hx anesthesia problems: none Results Review: All pre-operative results and documents have been reviewed as part of the pre-operative evaluation. [facility] Past Medical History Medical History Benign essential hypertension Depression Gastroesophageal reflux disease Mixed hyperlipidemia Overflow stress urinary incontinence in female Status post urethral sling. Screening mammogram, encounter for Surgical History Surgical History H/O tubal ligation (~1995) History of laparoscopy X2 History of left oophorectomy History of repair of left rotator cuff (~03/05/20) History of suburethral sling procedure (~02/06/17) Family History Family History Father Acute myocardial infarction, Onset Age: 59 Family history of chronic obstructive pulmonary disease, Onset Age: 59 Grandparent Family history of malignant neoplasm Family history of renal failure Mother Patient's mother is in good health Social History Social History Social History: Surrogate decision maker: Dameon Fernandes, spouse. Code status: Full code. Smoking status: Never smoker Second hand tobacco smoke exposure: No Alcohol intake: current Alcohol use details: 1 month Substance use: never Substance use type: does not use Lack of Transportation: No Lack of Food: Never True Current Housing: I Have Housing Concerned About Future Housing: No Difficulty Paying Gas/Electric Bills: No Difficulty Paying for Meds: No Currently Unemployed: No Education: High School Diploma/GED Difficulty w/ Childcare or Family Care: No Living arrangements: with family Additional living arrangements comments: Resides in [place] with her . They have 2 children. Occupation/Education: retired Additional occupation/education comments: Not working currently. Gender identity (if verbalized by the patient): Female Sexual Orientation (if Verbalized by the Patient): Straight or Heterosexual Spiritual care concerns: No Anes - Eval Final PreProcedure Day of Procedure 12/28/22 11:47 Patient weight: obese Heart: regular rate and rhythm Lungs: clear to auscultation Airway: Mallampati scale class II Neurological: alert and oriented Last oral intake: >/= 8 hours ASA classification: III Emergent: no Anesthetic plan: proceed Anesthesia type and monitorin
[2022-12-28] MEDS: LACTATED RINGERS 1,000 ML 150 ML IV CONT (11:49)
--- NOTE | 2022-12-28 12:09 | PM.HPGS ---
History of Present Illness History of Present Illness Consent: Risks, benefits, and alternatives have been discussed and questions answered. Patient agrees to proceed with procedure. Chief complaint: Neoplasm Screening Narrative: Malinda Fernandes is a 52 year old female here for first screening colonoscopy Review of Systems Constitutional: Constitutional: Denies headache(s) and Denies weakness Eyes: Eyes: Denies blurry vision ENT: Reports Normal hearing present, Denies headache(s) and Denies neck pain Cardiovascular: Cardiovascular: Denies chest pain and Denies dyspnea Respiratory: Respiratory: Denies dyspnea Gastrointestinal: Gastrointestinal: Reports no additional gastrointestinal complaints Genitourinary: Genitourinary: Denies dysuria Musculoskeletal: Musculoskeletal: Denies neck pain Integumentary/Breasts: Skin/Breast: Denies dry skin Neurologic: Reports Normal hearing present, Denies headache(s) and Denies weakness Psychiatric: Psychiatric: Denies anxiety Endocrine: Endocrine: Denies change in body appearance Hematologic/Lymphatic: Hematologic/Lymphatic: Denies easy bleeding Allergic/Immunologic: Allergic/Immunologic: Denies urticaria PMF Past Medical History Medical History (Updated 12/28/22 @ 12:09 by Yuri Cota MD) Benign essential hypertension Colon cancer screening Depression Gastroesophageal reflux disease Mixed hyperlipidemia Overflow stress urinary incontinence in female Status post urethral sling. Screening mammogram, encounter for Surgical History Surgical History H/O tubal ligation (~1995) History of laparoscopy X2 History of left oophorectomy History of repair of left rotator cuff (~03/05/20) History of suburethral sling procedure (~02/06/17) Family History Family History Father Acute myocardial infarction, Onset Age: 59 Family history of chronic obstructive pulmonary disease, Onset Age: 59 Grandparent Family history of malignant neoplasm Family history of renal failure Mother Patient's mother is in good health Social History Social History Social History: Surrogate decision maker: Dameon Fernandes, spouse. Code status: Full code. Smoking status: Never smoker Second hand tobacco smoke exposure: No Alcohol intake: current Alcohol use details: 1 month Substance use: never Substance use type: does not use Lack of Transportation: No Lack of Food: Never True Current Housing: I Have Housing Concerned About Future Housing: No Difficulty Paying Gas/Electric Bills: No Difficulty Paying for Meds: No Currently Unemployed: No Education: High School Diploma/GED Difficulty w/ Childcare or Family Care: No Living arrangements: with family Additional living arrangements comments: Resides in [place] with her . They have 2 children. Occupation/Education: retired Additional occupation/education comments: Not working currently. Gender identity (if verbalized by the patient): Female Sexual Orientation (if Verbalized by the Patient): Straight or Heterosexual Spiritual care concerns: No Meds Home Medications and Allergies Home Medications Medication Instructions Recorded Confirmed Type aspirin 81 mg tablet,delayed 81 mg PO DAILY 02/28/20 12/28/22 History release (Adult Low Dose Aspirin) venlafaxine 75 mg capsule,extended 75 mg PO DAILY 11/19/22 12/28/22 History release 24 hr atorvastatin 20 mg tablet 20 mg PO DAILY 12/14/22 12/28/22 History atenolol 25 mg tablet 25 mg PO DAILY #90 tabs 12/16/22 12/28/22 Rx acidophilus 100 million 1 cap PO DAILY 12/17/22 12/28/22 History cell-pectin, citrus 10 mg capsule alendronate 70 mg-cholecalciferol 1 tablet PO WEEKLY 12/17/22 12/28/22 History (vitamin D3) 2,800 unit tab
[2022-12-28 12:26] VITALS: BP 131/83; PULSE 72; RESP 16; O2SAT 98
--- NOTE | 2022-12-28 12:35 | WPDANESPN ---
Anes - Prog Note Post-Op Date/Time: 12/28/22 12:35 Cardiovascular status: normal Respiratory status: normal Airway patency: baseline Mental status: baseline Post-Op hydration status: normal Vital Signs: Last Vital Signs Temp 36.8 C 12/28/22 11:35 Pulse 70 12/28/22 11:35 Resp 20 12/28/22 11:35 BP 134/99 H 12/28/22 11:35 Pulse Ox 99 12/28/22 11:35 O2 Del Method Room Air 12/28/22 11:35 Pain Score (VAS): 0 I/O: Intake & Output 12/27/22 12/28/22 12/28/22 23:59 07:59 15:59 Intake Total 300 Balance 300 Patient Feedback: Patient satisfied with anesthetic care.
[2022-12-28 12:36] VITALS: BP 126/83; PULSE 60; RESP 16; O2SAT 98
[2022-12-28 12:46] VITALS: BP 125/76; PULSE 66; RESP 16; O2SAT 99
--- NOTE | 2022-12-28 13:02 | SUR.PHASEII ---
PT AWAKE AND ALERT. DENIES PAIN. DRINKING WATER. STATES SHES READY TO GO HOME.
== END 2022-12-28 13:10 | disposition home or self-care (01) ==
PROVIDERS: PCP Family Medicine; Visit Provider Internal Medicine Gastroenterology
PROC: 0DJD8ZZ Inspection of Lower Intestinal Tract, Via Natural or Artificial Opening Endoscopic (ICD-10-PCS; CPT 45378; principal; 2022-12-28 13:00)
DX: Z12.11 Encounter for screening for malignant neoplasm of colon (principal)
CPT/HCPCS: 45378

== ENCOUNTER → 2023-03-01 14:44 | Outpatient (CLI) | payer OTHER, SELFPAY ==
--- NOTE | ~2023-03-01 | MM_ITS ---
EXAMINATION: MM screening sheldon BI w jeevan HISTORY: Screening mammogram TECHNIQUE: Craniocaudal and mediolateral oblique 3-D tomosynthesis images were obtained and synthetic 2-D images were generated. CAD analysis was submitted and interpreted. COMPARISON: No prior mammogram is available for comparison at this institution. BREAST PARENCHYMAL COMPOSITION: The breasts are heterogeneously dense, which may obscure small masses . FINDINGS: RIGHT BREAST: There is a mass in the middle third of the upper outer quadrant of the breast. There is a possible mass in the middle/posterior third of the slightly inner breast. LEFT BREAST: There is a possible mass in the posterior third of the upper-outer quadrant of the breas t. IMPRESSION: 1. Bilateral breast findings as above. 2. Additional mammographic views and possible breast ultrasound are recommended. BI-RADS Category 0: Incomplete: Needs additional imaging evaluation. Reviewed, dictated and finalized at location A. IMPRESSION: 1. Bilateral breast findings as above. 2. Additional mammographic views and possible breast ultrasound are recommended . BI-RADS Category 0: Incomplete: Needs additional imaging evaluation.
== END ==
PROVIDERS: PCP Family Medicine; Visit Provider Obstetrics & Gynecology
DX: Z12.31 Encounter for screening mammogram for malignant neoplasm of breast (principal); R92.8 Other abnormal and inconclusive findings on diagnostic imaging of breast
CPT/HCPCS: 77063; 77067

== ENCOUNTER 2023-03-19 11:57 | Outpatient (CLI) | payer OTHER, SELFPAY ==
--- NOTE | ~2023-03-19 | MMUS_ITS ---
EXAMINATION: MM diagnostic sheldon BI w jeevan, US breast BI limited HISTORY: Possible bilateral breast masses on screening mammogram TECHNIQUE: Additional 3-D tomosynthesis images of the breasts were performed and synthetic 2-D images were generated. CAD analysis was submitted and interpreted. High resolution limited bilateral breast ultrasound was performed. COMPARISON: 03/01/2023 FINDINGS: MAMMOGRAPHIC FINDINGS: Right breast: There appears to be a 6 mm obscured, oval, low density mass in the middle third of the outer breast at the 10:00 location 9.5 cm from the nipple. The possible mass of the inner breast ques tioned on screening mammogram does not persist with spot compression. Left breast: There is a 1.3 cm oval, obscured, low density mass in the posterior third of the upper b reast at the 12:00 location, 10 cm from the nipple ULTRASOUND: Right breast: No definite sonographic correlate is identified for the mammographic finding in questio n. Left breast: There is a 12 mm cyst of the left breast corresponding with the mammographic finding. IMPRESSION: 1. Probably benign right breast mass. 2. Recommend 6 month follow-up right diagnostic mammogram and ultrasound. BI-RADS category 3, probably benign findings. Reviewed, dictated and finalized at location A. IMPRESSION: 1. Probably benign right breast mass. 2. Recommend 6 month follow-up right diagnostic mammogram and ultrasound. BI-RADS category 3, probably benign findings.
== END 2023-03-19 11:58 | disposition home or self-care (01) ==
PROVIDERS: PCP Family Medicine; Visit Provider Obstetrics & Gynecology
DX: N63.10 Unspecified lump in the right breast, unspecified quadrant (principal); N63.20 Unspecified lump in the left breast, unspecified quadrant
CPT/HCPCS: 76642; 77062; 77066; G0279

== ENCOUNTER 2023-04-29 10:39 | Outpatient (CLI) | payer OTHER, SELFPAY ==
[2023-04-29 20:34] LABS: Hemoglobin A1C 6.1 % (<5.7)
== END 2023-04-29 10:40 | disposition home or self-care (01) ==
LOC: ANHGOSHLAB 10:40
PROVIDERS: PCP Family Medicine; Visit Provider Family Medicine
DX: E11.9 Type 2 diabetes mellitus without complications (principal)
CPT/HCPCS: 36415; 83036

== ENCOUNTER 2023-11-29 12:04 | Outpatient (CLI) | payer OTHER, SELFPAY ==
--- NOTE | ~2023-11-29 | MMUS_ITS ---
EXAMINATION: MM diagnostic sheldon RT w jeevan, US breast RT limited HISTORY: Six-month follow-up for probably benign right breast mass TECHNIQUE: Craniocaudal, mediolateral, and mediolateral oblique 3-D tomosynthesis images of the right breast were performed and synthetic 2-D images were generated. CAD analysis was submitted and interp reted. High resolution limited right breast ultrasound was performed. COMPARISON: 02/27/2023, 03/01/2023 BREAST PARENCHYMAL COMPOSITION: The breasts are heterogeneously dense, which may obscure small masses . FINDINGS: MAMMOGRAPHIC FINDINGS: There is a 7 mm oval, obscured, low density mass in the middle third of the upper-outer quadrant of t he breast at the 10:00 location, 9 cm from the nipple. There has been no suspicious interval change. ULTRASOUND: There are adjacent cysts in the right breast at the 9:00 location at mid depth, 5 cm from the nipple corresponding to mammographic finding. There is a 9 mm cyst at the 11:00 location, 3 cm from the nipp le. IMPRESSION: 1. No mammographic or sonographic evidence of malignancy. 2. Recommend routine screening mammography, due in six months. BI-RADS Category 2: Benign finding(s). Reviewed, dictated and finalized at location A. 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 No mammographic or sonographic evidence of malignancy. 2. Recommend routine screening mammography, due in six months. BI-RADS Category 2: Benign finding(s).
== END 2023-11-29 12:05 | disposition home or self-care (01) ==
LOC: ANHIMG 12:11
PROVIDERS: PCP Family Medicine; Visit Provider Obstetrics & Gynecology
DX: N63.10 Unspecified lump in the right breast, unspecified quadrant (principal)
CPT/HCPCS: 76642; 77061; 77065; G0279

== ENCOUNTER 2024-04-30 05:48 | Inpatient (IN) | payer OTHER, SELFPAY ==
[2024-04-30] VITALS (26 sets, daily range): BP systolic 121–164; BP diastolic 80–101; PULSE 74–104; RESP 15–24; TEMP 35.9–37.2; O2SAT 92–99; BMI 33.7
--- NOTE | ~2024-04-30 | XR_ITS ---
EXAMINATION: XR chest 1V portable DATE: 04/30/2024 06:22 INDICATION: Chest pain. Shortness of breath. TECHNIQUE: A single frontal view of the chest was obtained. COMPARISON: Chest single view 12/28/2020 FINDINGS: There is mild atelectasis in right midlung zone. No pleural effusion or pneumothorax. The h eart size is normal. IMPRESSION: 1. Mild atelectasis in right midlung zone. Reviewed, dictated and finalized at location E.
--- NOTE | ~2024-04-30 | CT_ITS ---
EXAMINATION: CTA chest abdomen pelvis DATE: 04/30/2024 07:08 INDICATION: Chest pain radiating to the back. Vomiting. TECHNIQUE: Computed tomographic angiography (CTA) of the chest, abdomen, and pelvis was performed wit h 100 mL Omnipaque-350 intravenous contrast. Automated exposure control and iterative reconstruction technique were employed. The dose-length product was 913.21 mGy-cm. Maximum intensity projection 3D-r econstructions of the aorta and other arteries were constructed by the technologist on a separate wor kstation. COMPARISON: None. FINDINGS: CHEST CTA: The lungs demonstrate mild atelectasis. No pleural effusion. Cardiomegaly is noted. No pericardial ef fusion. There is no pulmonary embolus. Thoracic aorta is normal. There is mild thoracic spondylosis. ABDOMEN AND PELVIS CTA: The liver, gallbladder, spleen, pancreas, adrenal glands, and kidneys are normal. There are no dilate d loops of bowel. There is diverticulosis of the colon without evidence of diverticulitis. The append ix is normal. There are no pathologically enlarged lymph nodes. There is no free intraperitoneal flui d. There is mild aortic atherosclerosis. There is no significant stenosis of celiac axis, superior me senteric artery, the renal arteries, or inferior mesenteric artery. There is severe lower lumbar spon dylosis. IMPRESSION: 1. Mild aortic atherosclerosis. No aneurysm or dissection. Reviewed, dictated and finalized at location E.
--- NOTE | 2024-04-30 05:52 | ECG_ITS ---
Test Date: 2024-04-30 05:58:05 Measurements Intervals [place] Rate: 77 P: 45 WI: 127 QRS: -59 QRSD: 105 T: -41 QT: 389 QTc: 441 Interpretive Statements SINUS RHYTHM LEFT ANTERIOR FASCICULAR BLOCK ANTEROLATERAL INFARCT, AGE INDETERMINATE MODERATE T-WAVE ABNORMALITY, CONSIDER INFERIOR ISCHEMIA ABNORMAL ECG No previous ECG available for comparison Electronically Signed On 04-30-2024 07:50:49 CDT by Timo Holder D.O.
--- NOTE | 2024-04-30 06:05 | ED.CHESTPAIN ---
HPI - Chest Pain General Chief Complaint: Chest Pain <Olivia Fischer MD - Last Filed: 05/02/24 20:50> Stated Complaint: chest/back pain <Olivia Fischer MD - Last Filed: 05/02/24 20:50> Time Seen by Provider: 04/30/24 05:55 <Olivia Fischer MD - Last Filed: 05/02/24 20:50> History of Present Illness HPI narrative: Patient who has had history of stomach issues for a long time and takes Pepto-Bismol for very frequently presents here due to having epigastric pain that radiates up to her throat with nausea and vomiting, burning, radiates sometimes to the back, started after eating a hearty dinner that consisted of breakfast food including biscuit, gravy, sausage, eggs. No history of cardiac disease, has never seen a doctor for her symptoms <Olivia Fischer MD - Last Filed: 05/02/24 20:50> Related Data Home Medications: Home Medications Medication Instructions Recorded Confirmed acidophilus 100 million 1 cap PO DAILY 12/17/22 04/30/24 cell-pectin, citrus 10 mg capsule vitamin B complex (B 1 tablet PO DAILY 12/17/22 04/30/24 Complex-Vitamin B12 tablet) omeprazole 40 mg capsule,delayed 40 mg PO DAILY 04/30/24 04/30/24 release <Olivia Fischer MD - Last Filed: 05/02/24 20:50> Allergies/Adverse Reactions: Allergies Allergy/AdvReac Type Severity Reaction Status Date / Time No Known Allergies Allergy Unknown Verified 04/30/24 05:59 <Olivia Fischer MD - Last Filed: 05/02/24 20:50> Review of Systems Review of Systems: All systems reviewed & are unremarkable except as noted in HPI and below <Olivia Fischer MD - Last Filed: 05/02/24 20:50> PMFSH Past Medical History Medical History: Medical History Benign essential hypertension Colon cancer screening Depression Gastroesophageal reflux disease Mass of both breasts on mammogram Mixed hyperlipidemia Overflow stress urinary incontinence in female Status post urethral sling. Screening mammogram, encounter for <Olivia Fischer MD - Last Filed: 05/02/24 20:50> Surgical History Surgical History: Surgical History H/O tubal ligation (~1995) History of laparoscopy X2 History of left oophorectomy History of repair of left rotator cuff (~03/05/20) History of suburethral sling procedure (~02/06/17) <Olivia Fischer MD - Last Filed: 05/02/24 20:50> Family History Family History: Family History (Updated 04/30/24 @ 10:55 by Macario Ha MD) Father Acute myocardial infarction, Onset Age: 59 Family history of chronic obstructive pulmonary disease, Onset Age: 59 Heart disease Grandparent Family history of malignant neoplasm Family history of renal failure Mother Patient's mother is in good health Sibling Heart disease, Onset Age: 45 coronary stents placed at 45yo <Olivia Fischer MD - Last Filed: 05/02/24 20:50> Social History Social History: Social History Social History: Surrogate decision maker: Dameon Fernandes, spouse. Code status: Full code. Smoking status: Never smoker Second hand tobacco smoke exposure: No Alcohol intake: never Alcohol use details: 1 month Substance use: never Substance use type: does not use Do You Feel Safe in your Home?: Yes Lack of Transportation: No Lack of Food: Never True Current Housing: I Have Housing Concerned About Future Housing: No Difficulty Paying Gas/Electric Bills: No Difficulty Paying for Meds: No Currently Unemployed: No Education: High School Diploma/GED Difficulty w/ Childcare or Family Care: No Living arrangements: with family Additional living arrangements comments: Resides in [place] with her . They have 2 children. Occupation/Education: retired Additional occupation/education comments: Not working currently. Gender identity (if michele
[2024-04-30 06:07] LABS: Basophils Absolute Auto 0.1 K/mm3 (0.0-0.1); Basophils Percent Auto 0.4 % (0.2-1.2); Eosinophils Absolute Auto 0.1 K/mm3 (0-0.3); Eosinophils Percent Auto 0.8 % (0-4.4); Hematocrit 44.8 % (37.0-47.0); Immature Granulocyte Absolute 0.04 K/mm3 (0.00-0.031); Immature Granulocyte Percent A 0.3 % (0-0.5); Lymphocytes Absolute Auto 2.05 K/mm3 (0.9-3.2); Lymphocytes Percent Auto 16.8 % (18.3-44.2); Mean Corpuscular HGB Conc 33.5 g/dl (32-36); Mean Corpuscular Hemoglobin 29.8 pg (26-34); Mean Corpuscular Volume 88.9 fl (80-100); Mean Platelet Volume 10.1 fl (7.4-10.4); Monocytes Percent Auto 7.9 % (2.6-8.5); Neutrophils Percent Auto 73.8 % (45.5-73.1); Platelet Count Result 353 k/mm3 (150-375); Red Blood Count 5.04 M/mm3 (4.2-5.4); Red Cell Distribution Width 13.8 % (11.5-14.5); White Blood Count 12.2 K/mm3 (4.5-10.0)
[2024-04-30] MEDS: PANTOPRAZOLE SODIUM IV 40 MG VIAL IV PUSH ×2 (06:07→10:23)
[2024-04-30] MEDS: ONDANSETRON INJ 4 MG/2 ML VIAL IV PUSH (06:07)
[2024-04-30 06:18] LABS: Alanine Aminotransferase 22 U/L (6-35); Albumin Level 5.1 g/dL (3.5-5.1); Alkaline Phosphatase 123 U/L (38-126); Anion Gap 14 mmol/L (4-12); Aspartate Amino Transferase 35 U/L (14-36); Bilirubin,Total 0.6 mg/dL (0.2-1.3); Blood Urea Nitrogen 9 mg/dL (7-17); Calcium 9.4 mg/dL (8.4-10.2); Carbon Dioxide 26 mmol/L (22-30); Chloride 103 mmol/L (98-107); Estimated CRCL calculation 80 ml/min; Estimated Glomerular Filt Rate > 60; Glucose 124 mg/dL (65-110); Lipase 189 U/L (23-300); Potassium 3.6 mmol/L (3.4-5.0); Sodium 143 mmol/L (137-145)
[2024-04-30 06:19] LABS: INR 0.9; Prothrombin Time 13.1 Seconds (11.1-14.7)
[2024-04-30 06:20] LABS: Partial Thromboplastin Time 28.7 Seconds (22.3-36.8)
[2024-04-30] MEDS: LACTATED RINGERS 1,000 ML 999 ML IV CONT (06:29)
[2024-04-30] MEDS: ASPIRIN 81 MG CHEWABLE TABLET 324 MG PO (06:41)
[2024-04-30] MEDS: NITROGLYCERIN SL 0.4 MG TABLET SUBLINGUAL ×3 (07:08→14:12)
[2024-04-30] MEDS: HEPARIN SODIUM 5,000 UNITS/ML VIAL 4000 UNITS IV PUSH ×2 (07:53→14:57)
[2024-04-30] MEDS: HEPARIN SOD/D5W 100 UNITS/ML 25,000 UNITS/250 ML BAG 8 UNITS IV CONT (07:53)
--- NOTE | 2024-04-30 08:34 | ADMGEN ---
This patient, Malinda Fernandes, was admitted to IMU Room 209-01. Patient/family oriented to hospital policies and general routines including ID bracelet, bed and alarms, visiting hours, pain management, procedures, bathroom and other care routines, personal items, smoking policy, room service/diet, and visiting hours. Information on how to activate the Rapid Response Team has been discussed. Patient/Family are encouraged to report perceived risks to care and to ask questions if they do not understand what they are told or what they should do.
--- NOTE | 2024-04-30 08:34 | PC.NURSE ---
patient arrived to unit. states chest pain feels more like chest pressure now. Heparin drip going at 8.
--- NOTE | 2024-04-30 10:10 | PM.IMHP ---
H&P: HPI History of Present Illness Date/Time: 04/30/24 10:10 Chief Complaint: Chest pain Narrative: 53yo female with HLD and GERD here for chest pain. She has no hx of CAD. She was hospitalized here in December 2020 for chest pain. She had negative enzymes without significant EKG changes. She followed up with her Quality Cloth Tester and had: CTA of heart at [facility] on 01/23/21 showing normal coronaries, calcium score of 0, mild LV and RV dilation and mild MV thickening. Echo 02/18/21 showing normal LV with EF 55-60% and normal diastolic function. Home sleep study 02/28/21 showing snoring but no JER. Patient has daily 'stomach problems' with lower abdominal pain for > 1 year. Colonoscopy last year showing diverticulosis, one polyp that was removed and internal hemorrhoids. Pain does not appear to be associated with food. She was started on omeprazole with some benefit. She takes Pepto-Bismol as needed with some improvement as well. She started semaglutide 2 months ago for diabetes and weight loss but this has made her abdominal pain worse. She was doing well until 3 days prior to admission when she developed nausea, vomiting and diarrhea. She stayed in bed most of the day. There is no melena or hematochezia. No recent antibiotic use. No foreign travel. Not exposed to [place] or river water. No fever, cough, URI symptoms, dysuria or hematuria. Her symptoms improved until the evening prior to admission when she again developed nausea, vomiting and diarrhea. This was 2-3 hours after having a fatty meal. She denied abdominal pain, melena or hematochezia. Around midnight, she developed chest pain she describes as stabbing? that radiated to the back as well as up into both shoulders. She has never had this pain before. Pain was associated with nausea and diaphoresis. She felt short of breath. Pain was not palpable that was pleuritic. She has diabetes, hypertension hyperlipidemia. No history of coronary disease. She does not smoke. She has a family history of early coronary disease in her brother and father. She present to the emergency room for evaluation. In the ED, she hemodynamically stable. EKG showed normal sinus rhythm, left anterior fascicular block, possible old anterior lateral NH and moderate T-wave changes in the inferior leads. White count was 12K and glucose 124 otherwise baseline lab evaluation was unremarkable. Troponin was elevated 2.33 and climbed to 2.6. Chest x-ray showed mild atelectasis in the right mid lung zone. CTA of the chest abdomen pelvis showed no PE. The thoracic aorta was normal. Abdominal CT portion showed no acute findings. Patient was treated with Protonix, Zofran aspirin an nitroglycerin. She was started on heparin drip and admitted for further care. Review of Systems Review of Systems: All systems reviewed & are unremarkable except as noted in HPI and below PMFSH Past Medical History Medical History Benign essential hypertension Colon cancer screening Depression Gastroesophageal reflux disease Mass of both breasts on mammogram Mixed hyperlipidemia Overflow stress urinary incontinence in female Status post urethral sling. Screening mammogram, encounter for Surgical History Surgical History H/O tubal ligation (~1995) History of laparoscopy X2 History of left oophorectomy History of repair of left rotator cuff (~03/05/20) History of suburethral sling procedure (~02/06/17) Family History Family History (Updated 04/30/24 @ 10:55 by Macario Ha MD) Father Acute myocardial infarction, Onset Age: 59 Family history of chronic obstructive pulmonary disease, Onset Age: 59 Heart disease Grandparent Family history of malignant neoplasm Family history of renal failure Mother Patient's mother is in good health Sibling Heart disease, Onset Age: [address]
--- NOTE | 2024-04-30 10:38 | ECG_ITS ---
Test Date: 2024-04-30 10:58:08 Measurements Intervals [place] Rate: 74 P: 30 NM: 154 QRS: -31 QRSD: 100 T: -62 QT: 431 QTc: 480 Interpretive Statements SINUS RHYTHM LEFT ANTERIOR FASCICULAR BLOCK ST-T WAVE ABNORMALITY IN ANTEROLAT/INF LEADS- CONSIDER ISCHEMIA BASELINE WANDER- I, II ABNORMAL ECG Compared to ECG 04/30/2024 05:58:05 NO SIGNIFICANT CHANGE Electronically Signed On 04-30-2024 12:31:44 CDT by Timo Holder D.O.
[2024-04-30] MEDS: ATORVASTATIN 40 MG TABLET PO (12:02)
[2024-04-30] MEDS: METOPROLOL TARTRATE 25 MG TABLET PO ×2 (12:02→20:19)
[2024-04-30 12:17] LABS: Glucose Point of Care 71 mg/dl (65-105)
--- NOTE | 2024-04-30 13:44 | PC.NURSE ---
1019-patient states she has chest pain again, rates it 6/10. BP 135/84 HR 82 Nitro X1 given at 1025 pt rates CP 4/10 and feels much better[address] Dr. Ha at bedside at 1030. Verbal orders for EKG.
--- NOTE | 2024-04-30 14:14 | PC.NURSE ---
Asked pt about her chest pain, states it is a 5/10 and started back approximately 1 hour ago. Re educated patient on when to report her CP. Notified Dr. Holder, orders to give Nitro per orders.
--- NOTE | 2024-04-30 14:20 | PC.NURSE ---
patient states CP is 4/10 and would like to wait until it gets worse to take another Nitro. Discussed with patient when to notify for CP again.
[2024-04-30 14:26] LABS: Partial Thromboplastin Time 41.2 Seconds (22.3-36.8)
[2024-04-30 14:47] LABS: SARS-CoV-2 RNA PCR Negative (Negative)
--- NOTE | 2024-04-30 14:47 | PM.CNCAR ---
Assessment and Plan Assessment and plan (1) Chest pain: Code(s): R07.9 - Chest pain, unspecified Status: Acute Assessment and Plan: Troponin peaked at 2.6 and trending down now to 2.2. EKG shows some ST abnormality s/o ischemia. She is on heparin drip, aspirin, Atorvastatin and Metoprolol. Start NTG patch for ongoing chest pains. Obtain echo in AM. Discuss risks/benefits/alternative to [facility] with patient and she is agreeable for it. Keep NPO after midnight. Will consult [facility] for procedure in AM. (2) Non-ST elevation NC (NSTEMI): Code(s): I21.4 - Non-ST elevation (NSTEMI) myocardial infarction Status: Acute (3) Lower abdominal pain: Code(s): R10.30 - Lower abdominal pain, unspecified Status: Acute Assessment and Plan: Resolved. She attributes N/V/Diarrhea and abd pain to Wegovy for weight loss that she was taking. (4) Mixed hyperlipidemia: Code(s): E78.2 - Mixed hyperlipidemia Status: Acute Assessment and Plan: On Atorvastatin. (5) Benign essential hypertension: Code(s): I10 - Essential (primary) hypertension Status: Acute Assessment and Plan: Fair. Start Losartan 25 mg daily. Monitor. History of Present Illness History of Present Illness Consult date/time: 04/30/24 14:47 Reason For Visit: nstemi Narrative: 53 yr old woman who is my regular cardiology patient presents to ER with chest pain. She has a history of DM, hypertension, dyslipidemia, family history of CAD with her father having CABG and her brother with CAD. Reports that 4 days ago she had abdominal pain with nausea, vomiting diarrhea with fever and chills. That went away until last night at 10 pm the nausea, vomiting and diarrhea returned. Then at midnight she noted mid chest pressure radiating to her back and to both shoulders. Still having chest pain at 4/10 after NTG SL. Normally she can walk 1-2 blocks and limited by GUZMAN. States she has anxiety and is under stress from family. Denies chest pain, orthopnea, PND, edema, palpitations, dizziness. 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: Normal coronaries. Calcium score 0. Mild LV and RV dilated, mild MV thickening. Echo/MUGA:: 02/18/21 Echo: EF 55-60%. Electrophysiology:: 12/28/20 EKG: Sinus bradycardia at 48 bpm, BRWP. Stress Tests:: 02/28/21 Home sleep study: Snoring, but no JER. Avoid sleeping on right side. Review of Systems Review of Systems: All systems reviewed & are unremarkable except as noted in HPI and below Constitutional: Constitutional: Reports as per HPI, Reports chills and Reports fever(s) Cardiovascular: Cardiovascular: Reports as per HPI, Reports chest pain and Denies irregular heart rhythm Respiratory: Respiratory: Reports as per HPI and Reports dyspnea Gastrointestinal: Gastrointestinal: Reports as per HPI, Reports abdominal pain, Reports diarrhea, Reports nausea and Reports vomiting Genitourinary: Genitourinary: Reports as per HPI and Denies dysuria Musculoskeletal: Musculoskeletal: Reports as per HPI Neurologic: Reports as per HPI, Denies dizziness and Denies syncope PMFSH Past Medical History Medical History Benign essential hypertension Colon cancer screening Depression Gastroesophageal reflux disease Mass of both breasts on mammogram Mixed hyperlipidemia Overflow stress urinary incontinence in female Status post urethral sling. Screening mammogram, encounter for Surgical History Surgical History H/O tubal ligation (~1995) History of laparoscopy X2 History of left oophorectomy History of repair of left rotator cuff (~03/05/20) History of suburethral sling procedure (~02/06/17) Family History Family History (Updated 04/30/24 @ 10:55 by Macario Ha MD) Father Acute myocardial infarction, Onset Age: 59 Family history of staff air defense officer
[2024-04-30 16:41] LABS: Glucose Point of Care 87 mg/dl (65-105)
[2024-04-30] MEDS: NITROGLYCERIN OINTMENT 1 INCH DOSE 0.5 INCH TRANSDERM ×2 (17:07→23:09)
[2024-04-30] MEDS: ACETAMINOPHEN 325 MG TABLET 650 MG PO ×2 (18:19→23:08)
--- NOTE | 2024-04-30 18:21 | PC.NURSE ---
pt states chest pressure 4/10, dull aching pain, Nitro paste still intact. Tylenol given for a head ache.
[2024-04-30 20:42] LABS: Glucose Point of Care 97 mg/dl (65-105)
[2024-04-30 21:57] LABS: Partial Thromboplastin Time 84.9 Seconds (22.3-36.8)
[2024-05-01] VITALS (23 sets, daily range): BP systolic 103–113; BP diastolic 65–81; PULSE 74–92; RESP 14–20; TEMP 35.9–36.9; O2SAT 94–99
--- NOTE | 2024-05-01 | ECHO_ITS ---
Patient Info Name: Malinda Fernandes Age: 53 years : 1970 Gender: Female Ht: 65 in Wt: 202 lbs BSA: 2.09 m2 HR: 86 bpm BP: 110 / 72 mmHg Technical Quality: Fair Exam Date: 05/01/2024 11:07 AM Exam Location: Echo Lab Patient Status: Inpatient Admit Date: 04/30/2024 Staff Ordering Physician: Timo Holder DO Planning Assistant: Stan Calderón RDCS Attending Provider: Macario Ha MD Referring Physician: Gallo RIBEIRO; Exam Type: CA echo doppler color flow Study Info Indications I21.4 - Non-ST elevation (NSTEMI) myocardial infarction Complete two-dimensional, color flow and Doppler transthoracic echocardiogram is performed with contrast to opacify the left ventricle and to improve the deliniation of the left ventricle endocardial borders. Contrast/Agitated Saline Contrast/Ag. Saline: Definity Amount: 2.00 ml IV Access Condition: patent with no signs of infiltration Summary 1. Definity contrast administered improved wall motion interpretation. 2. Left ventricular chamber dimension is moderately enlarged. 3. Mid to apical segments are severely hypokinetic, but basal segments have normal contractility suggestive of takotsubo cardiomyopathy. 4. Left ventricular systolic function is severely reduced, estimated at 25-30%. 5. The left ventricular diastolic function is grade I diastolic dysfunction. 6. E/e' 16 is elevated. 7. Left atrial chamber dimension is mildly enlarged. 8. There is trace pulmonic regurgitation. Left Ventricle E/e' 16 is elevated. Definity contrast administered improved wall motion interpretation. Mid to apical segments are severely hypokinetic, but basal segments have normal contractility suggestive of takotsubo cardiomyopathy. Left ventricular chamber dimension is moderately enlarged. Left ventricular systolic function is severely reduced, estimated at 25-30%. The left ventricular diastolic function is grade I diastolic dysfunction. Right Ventricle Right ventricular chamber dimension is normal. Right ventricular systolic function is normal. Left Atria Left atrial chamber dimension is mildly enlarged. Right Atria Right atrial chamber dimension is normal. Aortic Valve The aortic valve is trileaflet. There is no aortic valve stenosis. There is no aortic valve regurgitation. Pulmonic Valve There is trace pulmonic regurgitation. Mitral Valve There is no mitral valve stenosis. There is no mitral valve regurgitation. Tricuspid Valve There is no tricuspid valve regurgitation. Pericardium/Pleural There is no pericardial effusion. Inferior Vena Cava Normal inferior vena cava with >50% collapse upon inspiration consistent with normal right atrial pressure, 5 mmHg. Aorta The aortic root size at the sinus of Valsalva is normal. Left Ventricular Outflow Tract Name Value Normal LVOT 2D LVOT Diameter 2.1 cm LVOT Doppler LVOT Peak Gradient 2 mmHg LVOT Mean Gradient 1 mmHg LVOT VTI 11 cm LVOT VTI/AV VTI Ratio 0.7 LVOT Stroke Volume 40 ml LVOT CO 3.1 l/min
[2024-05-01 03:55] LABS: Basophils Absolute Auto 0.1 K/mm3 (0.0-0.1); Basophils Percent Auto 0.5 % (0.2-1.2); Eosinophils Absolute Auto 0.2 K/mm3 (0-0.3); Eosinophils Percent Auto 1.9 % (0-4.4); Hematocrit 42.3 % (37.0-47.0); Immature Granulocyte Absolute 0.05 K/mm3 (0.00-0.031); Immature Granulocyte Percent A 0.5 % (0-0.5); Lymphocytes Absolute Auto 2.23 K/mm3 (0.9-3.2); Lymphocytes Percent Auto 20.6 % (18.3-44.2); Mean Corpuscular HGB Conc 33.1 g/dl (32-36); Mean Corpuscular Hemoglobin 29.6 pg (26-34); Mean Corpuscular Volume 89.4 fl (80-100); Mean Platelet Volume 10.2 fl (7.4-10.4); Monocytes Absolute Auto 0.7 K/mm3 (0.1-0.6); Monocytes Percent Auto 6.9 % (2.6-8.5); Neutrophils Absolute Auto 7.5 K/mm3 (1.3-6.7); Neutrophils Percent Auto 69.6 % (45.5-73.1); Platelet Count Result 276 k/mm3 (150-375); Red Blood Count 4.73 M/mm3 (4.2-5.4); Red Cell Distribution Width 13.8 % (11.5-14.5); White Blood Count 10.8 K/mm3 (4.5-10.0)
[2024-05-01 04:02] LABS: Alanine Aminotransferase 18 U/L (6-35); Albumin Level 4.2 g/dL (3.5-5.1); Alkaline Phosphatase 106 U/L (38-126); Anion Gap 11 mmol/L (4-12); Aspartate Amino Transferase 35 U/L (14-36); Bilirubin,Total 0.6 mg/dL (0.2-1.3); Blood Urea Nitrogen 7 mg/dL (7-17); Calcium 9.1 mg/dL (8.4-10.2); Carbon Dioxide 26 mmol/L (22-30); Chloride 102 mmol/L (98-107); Cholesterol 142 mg/dL (0-200); Estimated CRCL calculation 92 ml/min; Estimated Glomerular Filt Rate > 60; Glucose 116 mg/dL (65-110); HDL Direct 32 mg/dL; Magnesium 1.8 mg/dL (1.6-2.3); Potassium 3.6 mmol/L (3.4-5.0); Sodium 139 mmol/L (137-145); Triglycerides 164 mg/dL (<150)
[2024-05-01 04:03] LABS: Partial Thromboplastin Time 74.1 Seconds (22.3-36.8)
[2024-05-01 04:13] LABS: LDL Cholesterol Direct 82 mg/dL
[2024-05-01 04:18] LABS: Troponin I 0.868 ng/mL (0.000-0.034)
[2024-05-01] MEDS: NITROGLYCERIN OINTMENT 1 INCH DOSE 0.5 INCH TRANSDERM (06:18)
--- NOTE | 2024-05-01 07:45 | PM.PNCARD ---
Progress Note: A&P Assessment and Plan (1) Chest pain: Code(s): R07.9 - Chest pain, unspecified Status: Acute Assessment and Plan: Troponin peaked at 2.6 and trended down. EKG shows some ST abnormality s/o ischemia. She is on heparin drip, aspirin, Atorvastatin and Metoprolol. On NTG patch for persistent chest pains. Obtain echo. Discuss risks/benefits/alternative to [facility] with patient and she is agreeable for it. Keep NPO. Will consult HCG. (2) Non-ST elevation SC (NSTEMI): Code(s): I21.4 - Non-ST elevation (NSTEMI) myocardial infarction Status: Acute (3) Lower abdominal pain: Code(s): R10.30 - Lower abdominal pain, unspecified Status: Acute Assessment and Plan: Resolved. She attributes N/V/Diarrhea and abd pain to Wegovy for weight loss that she was taking. (4) Mixed hyperlipidemia: Code(s): E78.2 - Mixed hyperlipidemia Status: Acute Assessment and Plan: On Atorvastatin. (5) Benign essential hypertension: Code(s): I10 - Essential (primary) hypertension Status: Acute Assessment and Plan: Stable Started Losartan 25 mg daily. Monitor. Subjective Date/time seen: 05/01/24 07:45 Interval history: No more chest pains with NTG patch. No nausea/vomiting/abd pain. No sob. Exam Const: General: cooperative, healthy appearing and comfortable Orientation/consciousness: oriented to person, oriented to place and oriented to time Resp: Auscultation: clear to auscultation bilaterally, no crackles, no rales, no rhonchi and no wheezes Cardio: Rate: regular rate Rhythm: regular rhythm Heart sounds: no murmurs Peripheral pulses: dorsalis pedis present Neuro: General: oriented to person, oriented to place and oriented to time Extrem: Right lower extremity: no edema Left lower extremity: no edema Objective Data Vital Signs Vital Signs: Vital Signs - 24 hr 04/30/24 07:46 04/30/24 08:00 04/30/24 08:36 Temperature 96.8 F L Pulse Rate 96 78 Respiratory Rate 16 18 Blood Pressure 139/88 Pulse Oximetry 92 96 98 Oxygen Delivery 04/30/24 10:55 04/30/24 12:02 04/30/24 10:00 Temperature 97.2 F L Pulse Rate 80 80 74 Respiratory Rate 24 H Blood Pressure 134/83 Pulse Oximetry 95 Oxygen Delivery 04/30/24 09:00 04/30/24 14:11 04/30/24 16:38 Temperature 96.6 F L Pulse Rate 80 78 85 Respiratory Rate 18 Blood Pressure 143/96 H 121/80 Pulse Oximetry 94 Oxygen Delivery 04/30/24 12:00 04/30/24 14:00 04/30/24 16:00 Temperature Pulse Rate 83 82 87 Respiratory Rate Blood Pressure Pulse Oximetry Oxygen Delivery 04/30/24 18:00 04/30/24 20:16 04/30/24 20:00 Temperature 97.9 F 98.9 F Pulse Rate 86 87 86 Respiratory Rate 16 18 Blood Pressure 129/82 125/84 Pulse Oximetry 98 96 Oxygen Delivery 04/30/24 20:19 04/30/24 20:00 04/30/24 20:00 Temperature Pulse Rate 92 94 Respiratory Rate Blood Pressure Pulse Oximetry Oxygen Delivery Room Air 04/30/24 22:00 04/30/24 23:22 04/30/24 23:53 Temperature 97.0 F L Pulse Rate 85 84 Respiratory Rate 18 Blood Pressure 122/81 Pulse Oximetry 95 Oxygen Delivery Room Air 05/01/24 00:00 05/01/24 02:00 05/01/24 04:00 Temperature 97.5 F L Pulse Rate 87 90 92 Respiratory Rate 16 Blood Pressure 110/72 Pulse Oximetry 94 Oxygen Delivery 05/01/24 04:00 05/01/24 04:00 05/01/24 06:00 Temperature Pulse Rate 86 90 Respiratory Rate Blood Pressure Pulse Oximetry Oxygen Delivery Room Air Intake/Output Intake/Output: Intake & Output 04/28/24 04/29/24 04/30/24 05/01/24 23:59 23:59 23:59 23:59 Intake Total 1668.6 318.2 Output Total 1700 950 Balance -31.4 -631.8 Meds/Results Medications: Active Medications Generic Name Dose Route Start Last Admin Trade Name Vera PRN Reason Stop Dose Admin Acetaminophen 650 mg 04/30/24 07:33 04/30/24 23:08 A
[2024-05-01] MEDS: ASPIRIN 81 MG CHEWABLE TABLET PO (08:25)
[2024-05-01] MEDS: METOPROLOL TARTRATE 25 MG TABLET PO (08:25)
[2024-05-01] MEDS: ATORVASTATIN 40 MG TABLET PO (08:25)
[2024-05-01] MEDS: ACETAMINOPHEN 325 MG TABLET 650 MG PO (08:26)
[2024-05-01] MEDS: LOSARTAN POTASSIUM 25 MG TABLET PO (08:26)
[2024-05-01] MEDS: PANTOPRAZOLE SODIUM IV 40 MG VIAL IV PUSH (08:26)
[2024-05-01 08:32] LABS: Glucose Point of Care 108 mg/dl (65-105)
[2024-05-01] MEDS: HEPARIN SOD/D5W 100 UNITS/ML 25,000 UNITS/250 ML BAG 11 UNITS IV CONT (08:41)
--- NOTE | 2024-05-01 10:06 | WPDMODSED ---
Moderate Sedation Note-Pt Data Patient Data Diagnosis: chest pain, non-STEMI Present Complaint: chest pain Procedure to be performed/Plan: left heart catheterization Allergies Allergy/AdvReac Type Severity Reaction Status Date / Time No Known Allergies Allergy Unknown Verified 04/30/24 05:59 Home Medications Medication Instructions Recorded Confirmed Type acidophilus 100 million 1 cap PO DAILY 12/17/22 04/30/24 History cell-pectin, citrus 10 mg capsule vitamin B complex (B 1 tablet PO DAILY 12/17/22 04/30/24 History Complex-Vitamin B12 tablet) atorvastatin 20 mg tablet 20 mg PO DAILY #90 tabs 07/23/23 04/30/24 Rx atenolol 25 mg tablet 25 mg PO DAILY #90 tabs 10/29/23 04/30/24 Rx venlafaxine 75 mg capsule,extended 75 mg PO DAILY #90 caps 10/29/23 04/30/24 Rx release 24 hr omeprazole 40 mg capsule,delayed 40 mg PO DAILY 04/30/24 04/30/24 History release Current Medications: Active Medications Acetaminophen (Acetaminophen 325 Mg Tablet) 650 mg PO Q4H PRN PRN Reason: Mild Pain (1-3) or Fever Last Admin: 05/01/24 08:26 Dose: 650 mg Hydrocodone Bitart/Acetaminophen (Hydrocodone/Acetaminophen (*Crx) 5-325 Mg Tablet) 1 tab PO Q4H PRN PRN Reason: Pain Rated 4-6 Aspirin (Aspirin 81 Mg Chewable Tablet) 81 mg PO DAILY@0800 [facility] Last Admin: 05/01/24 08:25 Dose: 81 mg Atorvastatin Calcium (Atorvastatin 40 Mg Tablet) 40 mg PO DAILY [facility] Last Admin: 05/01/24 08:25 Dose: 40 mg Dextrose (Dextrose 50% 25 Gm/50 Ml Syringe) 12.5 gm IV PUSH PRN PRN; Protocol PRN Reason: Hypoglycemia Glucagon (Glucagon For Inj 1 Mg Vial) 1 mg IM PRN PRN; Protocol PRN Reason: Hypoglycemia Glucose (Glucose Oral Gel 15 Gm Of Glucse In 37.5 Gm Tube) 15 gm PO PRN PRN; Protocol PRN Reason: Hypoglycemia Heparin Sodium (Porcine) (Heparin Sodium 5,000 Units/Ml Vial) 4,000 units IV PUSH PRN PRN PRN Reason: aPTT less than 55 seconds Last Admin: 04/30/24 14:57 Dose: 4,000 units Heparin Sodium (Porcine) (Heparin Sodium 5,000 Units/Ml Vial) 3,500 units IV PUSH PRN PRN PRN Reason: aPTT 55 - 70 seconds Heparin Sodium/Dextrose (Heparin Sodium/D5w 100 Units/Ml) 25,000 units in 250 mls @ 11 mls/hr IV CONT .[id number] [facility]; Protocol Last Admin: 05/01/24 08:41 Dose: 1,100 units/hr, 11 mls/hr Dextrose (Dextrose 5% 1,000 Ml) 1,000 mls @ 100 mls/hr IVPB PRN PRN; Protocol PRN Reason: Hypoglycemia Insulin Aspart (Insulin Aspart (*Bkc) 100 Units/Ml) 4 - 8 units SUB-Q TIDWM [facility]; Protocol Last Admin: 05/01/24 08:25 Dose: Not Given Losartan Potassium (Losartan Potassium 25 Mg Tablet) 25 mg PO DAILY [facility] Last Admin: 05/01/24 08:26 Dose: 25 mg Metoprolol Tartrate (Metoprolol Tartrate 25 Mg Tablet) 25 mg PO Q12HR [facility] Last Admin: 05/01/24 08:25 Dose: 25 mg Nitroglycerin (Nitroglycerin Sl 0.4 Mg Tablet) 0.4 mg SUBLINGUAL Q5MIN PRN PRN Reason: Chest Pain Last Admin: 04/30/24 14:12 Dose: 0.4 mg Nitroglycerin (Nitroglycerin Ointment 1 Inch Dose) 0.5 inch TRANSDERM Q6HR [facility] Last Admin: 05/01/24 06:18 Dose: 0.5 inch Ondansetron HCl (Ondansetron Inj 4 Mg/2 Ml Vial) 4 mg IV PUSH Q4H PRN PRN Reason: Nausea Pantoprazole Sodium (Pantoprazole Sodium Iv 40 Mg Vial) 40 mg IV PUSH QAM [facility] Last Admin: 05/01/24 08:26 Dose: 40 mg Perflutren Lipid Microsphere (Perflutren Lipid Microspheres 1.5 Ml Vial Diluted To 10 Ml Total Volume) 0 ml IV PUSH ONCE PRN; Protocol PRN Reason: adequate visualization Stop: 05/03/24 14:56 Sedation/Anesthesia: No previous sedation/anesthesia problems (including family history). [facility] Past Medical History Medical History Benign essential hypertension Colon cancer screening Depression Gastroesophageal reflux disease Mass of both breasts on mammogram Mixed hyperlipidemia Overflow stress urinary incontinence in female Status post urethral sling. Screening mammogram, encounter for Surgical History Surgical History (Reviewed
[2024-05-01] MEDS: PERFLUTREN LIPID MICROSPHERES 1.5 ML VIAL DILUTED TO 10 ML TOTAL VOLUME IV PUSH (11:32)
[2024-05-01 12:11] LABS: Glucose Point of Care 86 mg/dl (65-105)
--- NOTE | 2024-05-01 12:59 | PC.NURSE ---
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
--- NOTE | 2024-05-01 13:32 | WPDCARDPROC ---
Cardiac Cath Procedure Note Date of procedure:: 05/01/24 Performing physician:: Mayco aKmara MD Indication:: chest pain, troponin elevation, evidence of non ST elevation CT Brief clinical history:: this is a 53-year-old woman presenting with recent onset episodes of chest pain. ECG shows anterior T-wave inversions and troponin levels are elevated but flat. No prior history of coronary disease. Previous coronary CTA was negative Procedure Procedure performed:: left ventriculogram coronary angiography Angio-Seal to right femoral artery Sedation/Medication given:: fentanyl 50 mg Versed 2 mg case start time 1:10 p.m. case end time 1:29 p.m. sedation provided by Marbella Wray RN, trained observer Access site:: right femoral artery Estimated blood loss:: less than 20 cc Procedure note:: patient was brought to the cardiac catheterization lab in the postabsorptive state where the right femoral triangle was prepared and draped in the normal fashion. Anesthesia was given with 1% lidocaine infiltrated locally. Using the modified Seldinger technique the right femoral artery was punctured and a 5 Micronesian vascular sheath was placed. After this left heart catheterization was carried out. A 5 Micronesian angled pigtail catheter was used to measure left-sided hemodynamics and to inject the left ventriculogram in the ATKINSON projection. After this a standard 5 Micronesian JR4 catheter was used to engage and inject the right coronary artery and a 5 Micronesian FL4 catheter was used to engage and inject the left coronary artery. The cineangiograms were reviewed and the case was terminated. An angiogram was then done femoral artery through the sheath after which an Angio-Seal device was deployed with a good hemostatic result. Procedure was well tolerated and uncomplicated. There was no evidence of groin hematoma when she left the cardiac catheterization lab. Findings:: Hemodynamics: Central pressure is 130/84 left ventricle 130 over 80 end-diastolic 22 there is no gradient on pullback across the aortic valve. Left ventricle: The LV is mildly enlarged there is a large region of akinesia involving the mid to apical anterior wall, apex and the apical half of the inferior wall as well. The base of the left ventricle contracts well the global ejection fraction is visually estimated at 35%. The left main coronary artery is nicely patent the left anterior descending is a medium caliber artery extending down to the apex. The diagonal and septal branches are relatively small but otherwise the LAD is angiographically unremarkable and free of disease the circumflex is a moderate caliber vessel giving rise to the marginal branches the circumflex system is smooth and angiographically normal. The right coronary large caliber and dominant to the posterior circulation. The right coronary bifurcates somewhat early in the 2nd portion vessel is this the RCA is angiographically free of disease. Conclusion:: 1. Right coronary dominant circulation with high bifurcation of the RCA but no angiographic evidence of coronary artery disease 2. regional left ventricular systolic dysfunction with akinesis of the apical half of the left ventricle with moderate depression and ejection fraction and elevated LVEDP. This pattern of LV dysfunction with the absence of coronary disease suggests takotsubo cardiomyopathy Mayco Kamara MD FACC
[2024-05-01 16:16] LABS: Glucose Point of Care 102 mg/dl (65-105)
[2024-05-01] MEDS: SODIUM CHLORIDE 0.9% IV 1,000 ML 125 ML IV CONT (16:31)
--- NOTE | 2024-05-01 19:10 | PM.IMPN ---
Progress Note: A&P Assessment and Plan (1) Takotsubo cardiomyopathy: Code(s): I51.81 - Takotsubo syndrome Status: Acute Assessment and Plan: LHC performed today showing clean coronaries but the LV is mildly enlarged there is a large region of akinesia involving the mid to apical anterior wall, apex and the apical half of the inferior wall with an EF of 35%. This pattern of LV dysfunction with the absence of coronary disease suggests takotsubo cardiomyopathy. Echo showing wall motion abnormalities consistent with takotsubo cardiomyopathy with EF of 25-30% and grade 1 diastolic dysfunction. She was started on Torpol XL and Losartan. Okay to stop NTP. Also could stop ASA. Lifevest being considered. (2) Non-ST elevation OH (NSTEMI): Code(s): I21.4 - Non-ST elevation (NSTEMI) myocardial infarction Status: Acute Assessment and Plan: Patient presents with acute onset of chest pain she describes as stabbing. EKG shows normal sinus rhythm with left anterior fascicular block, age-indeterminate anterior lateral infarct and T-wave inversion in lateral and inferior leads. Troponin elevated to 2.6. No PE or dissection noted. She was given aspirin, metoprolol and Lipitor. Cardiology consulted and patient underwent LHC with results as above. Elevated Troponin Type II OH related to above (3) Diabetes mellitus: Code(s): E11.9 - Type 2 diabetes mellitus without complications Status: Acute Assessment and Plan: A1c pending. Patient with DM. The patient's blood glucose was reviewed on 05/01 Glucose remains well controlled. Continue AccuCheks covering with sliding scale. Hypoglycemia protocol available as needed. Continue to monitor. Diabetic diet (4) Mixed hyperlipidemia: Code(s): E78.2 - Mixed hyperlipidemia Status: Acute Assessment and Plan: TG 164, TC 142, LDL 82 and HDL 32, Continue Lipitor (5) Benign essential hypertension: Code(s): I10 - Essential (primary) hypertension Status: Acute Assessment and Plan: BP elevated on admission to 164/92. No dissection by CTA. Patient's blood pressure was reviewed on 05/01 Blood pressure remains well controlled. Continue to monitor (6) Nausea & vomiting: Code(s): R11.2 - Nausea with vomiting, unspecified Status: Acute Assessment and Plan: Patient with nausea, vomiting and diarrhea a few days prior to admission. Symptoms appeared to resolve then recurred on the evening prior to admission. No risk factors to suggest C diff. She probably has a viral gastroenteritis. Unclear if this somehow contributed to the above events. COVID negative. Plan DVT prophylaxis - lovenox Code status -full Subjective Date/time seen: 05/01/24 19:10 Interval history: 53yo female with HLD and GERD here for chest pain. She slept poorly. no further chest pain. She is back from her [facility] procedure. She has completed her bedrest and has been up walking to the . She is eting since returning without difficulty. Exam Narrative: AF 96.6 113/73 84 18 99% ra Gen - NARD Chest - CTA bilaterally, nml RR CV - RRR. S1-S2. Abd - soft, NT/ND Ext - no pedal edema. Rt groin site clean and dry Neuro - nonfocal Psych - normal mood and affect Skin - warm and dry. Objective Data Vital Signs Vital Signs: Vital Signs - 24 hr 04/30/24 20:16 04/30/24 20:00 04/30/24 20:19 Temperature 97.9 F 98.9 F Pulse Rate 87 86 92 Pulse Rate [Right Pedal (Dorsalis Pedis)] Respiratory Rate 16 18 Blood Pressure 129/82 125/84 Pulse Oximetry 98 96 Oxygen Delivery 04/30/24 20:00 04/30/24 20:00 04/30/24 22:00 Temperature Pulse Rate 94 85 Pulse Rate [Right Pedal (Dorsalis Pedis)] Respiratory Rate Blood Pressure Pulse Oximetry Oxygen Delivery Room Air 04/30/24 23:22 04/30/24 23:53 05/01/24 00:00 Temperature 97.0 F L Pulse Rate 84 87 Pulse Rate [
[2024-05-01 21:06] LABS: Glucose Point of Care 117 mg/dl (65-105)
[2024-05-01] MEDS: ENOXAPARIN 40 MG/0.4 ML SYRINGE SUB-Q (21:33)
[2024-05-01] MEDS: MELATONIN 5 MG TABLET PO (21:34)
[2024-05-02] VITALS (11 sets, daily range): BP systolic 121–132; BP diastolic 73–87; PULSE 70–86; RESP 16–20; TEMP 36.4–36.7; O2SAT 97–98
[2024-05-02 04:21] LABS: Partial Thromboplastin Time 31.5 Seconds (22.3-36.8)
--- NOTE | 2024-05-02 07:56 | PM.PNCARD ---
Progress Note: A&P Assessment and Plan (1) Chest pain: Code(s): R07.9 - Chest pain, unspecified Status: Acute Assessment and Plan: Resolved. Troponin peaked at 2.6 and trended down. EKG shows some ST abnormality s/o ischemia. 05/01/24 Echo: Mod LVE, EF 25-30%, mid-apical segments are severely hypokinetic, basal segments are normal, grade I diastolic dysfunction (E/e' 16), mild LAE, trace PI. 05/02/24 [facility] with Dr. Kamara: Normal coronaries. (2) Non-ST elevation [place] (NSTEMI): Code(s): I21.4 - Non-ST elevation (NSTEMI) myocardial infarction Status: Acute (3) Lower abdominal pain: Code(s): R10.30 - Lower abdominal pain, unspecified Status: Acute Assessment and Plan: Resolved. She attributes N/V/Diarrhea and abd pain to Wegovy for weight loss that she was taking. (4) Mixed hyperlipidemia: Code(s): E78.2 - Mixed hyperlipidemia Status: Acute Assessment and Plan: On Atorvastatin. (5) Benign essential hypertension: Code(s): I10 - Essential (primary) hypertension Status: Acute Assessment and Plan: Stable. (6) Takotsubo cardiomyopathy: Code(s): I51.81 - Takotsubo syndrome Status: Acute Assessment and Plan: Start Toprol and Losartan. Discuss Life Vest to prevent sudden cardiac arrest and she is interested and this has been ordered. After receiving this she may be d/c home and f/u with me in 1 week. Will order phase II cardiac rehab at f/u visit. Subjective Date/time seen: 05/02/24 07:56 Interval history: No more chest pains. No nausea/vomiting/abd pain. No sob. Exam Const: General: cooperative, healthy appearing and comfortable Orientation/consciousness: oriented to person, oriented to place and oriented to time Resp: Auscultation: clear to auscultation bilaterally, no crackles, no rales, no rhonchi and no wheezes Cardio: Rate: regular rate Rhythm: regular rhythm Heart sounds: no murmurs Peripheral pulses: dorsalis pedis present Neuro: General: oriented to person, oriented to place and oriented to time Extrem: Right lower extremity: no edema Left lower extremity: no edema Objective Data Vital Signs Vital Signs: Vital Signs - 24 hr 05/01/24 08:25 05/01/24 08:00 05/01/24 10:00 Temperature Pulse Rate 89 88 84 Pulse Rate [Right Pedal (Dorsalis Pedis)] Respiratory Rate Blood Pressure Pulse Oximetry Oxygen Delivery 05/01/24 11:39 05/01/24 12:00 05/01/24 13:45 Temperature 97.5 F L Pulse Rate 80 81 84 Pulse Rate [Right Pedal (Dorsalis Pedis)] Respiratory Rate 20 14 Blood Pressure 112/69 106/81 Pulse Oximetry 95 98 Oxygen Delivery Room Air 05/01/24 13:45 05/01/24 14:00 05/01/24 14:00 Temperature Pulse Rate 75 Pulse Rate [Right Pedal (Dorsalis Pedis)] 84 75 Respiratory Rate 14 Blood Pressure 103/77 Pulse Oximetry 96 Oxygen Delivery Room Air 05/01/24 14:15 05/01/24 14:15 05/01/24 14:30 Temperature Pulse Rate 81 74 Pulse Rate [Right Pedal (Dorsalis Pedis)] 81 Respiratory Rate 16 17 Blood Pressure 103/76 105/76 Pulse Oximetry 95 97 Oxygen Delivery Room Air Room Air 05/01/24 14:30 05/01/24 14:45 05/01/24 14:45 Temperature Pulse Rate 75 Pulse Rate [Right Pedal (Dorsalis Pedis)] 74 75 Respiratory Rate 17 Blood Pressure 105/76 Pulse Oximetry 96 Oxygen Delivery Room Air 05/01/24 15:15 05/01/24 15:15 05/01/24 15:17 Temperature Pulse Rate 77 Pulse Rate [Right Pedal (Dorsalis Pedis)] 77 77 Respiratory Rate 17 Blood Pressure 112/81 Pulse Oximetry 97 Oxygen Delivery Room Air 05/01/24 16:27 05/01/24 17:07 05/01/24 16:00 Temperature 96.7 F L 96.6 F L Pulse Rate 80 84 79 Pulse Rate [Right Pedal (Dorsalis Pedis)] Respiratory Rate 18 18 Blood Pressure 111/75 113/73 Pulse Oximetry 98 99 Oxygen Delivery 05/01/24 18:00 05/01/24 20:00 05/01/24 20:00 Temperature 98.4 F Pulse Rate 84
[2024-05-02 08:02] LABS: Glucose Point of Care 96 mg/dl (65-105)
--- NOTE | 2024-05-02 08:32 | IVDEFINITY ---
Prior to administration of IV Definity the patient was educated on the risks and benefits of the imaging enhancing agent including potential adverse side effects. The patient verbalized understanding. Allergies were verified. No exclusion criteria were identified and at least one of the following inclusion criteria were met: 1) physician request, 2) patient technically difficult to image (per the [place] [employer] guidelines of two or more segments not discernable within the apical view), or 3) questionable left ventricular function. ?
[2024-05-02] MEDS: LOSARTAN POTASSIUM 25 MG TABLET PO (08:42)
[2024-05-02] MEDS: METOPROLOL SUCCINATE EXT REL 25 MG TABCR PO (08:42)
[2024-05-02] MEDS: VITAMIN B COMPLEX CAPSULE 1 CAP PO (08:42)
[2024-05-02] MEDS: ATORVASTATIN 20 MG TABLET PO (08:43)
[2024-05-02] MEDS: ENOXAPARIN 40 MG/0.4 ML SYRINGE SUB-Q (08:43)
[2024-05-02] MEDS: VENLAFAXINE HCL XR 75 MG CAP.ER.24H PO (08:43)
[2024-05-02] MEDS: PANTOPRAZOLE 40 MG TABLET PO (08:43)
[2024-05-02 11:25] LABS: Glucose Point of Care 79 mg/dl (65-105)
--- NOTE | 2024-05-02 14:18 | PM.DS ---
DS: Admitting Diagnosis Discharge Date 05/02/24 Admitting Diagnosis Chest pain DS: Discharge Diagnosis Discharge Diagnosis (1) Takotsubo cardiomyopathy: Code(s): I51.81 - Takotsubo syndrome Status: Acute (2) Non-ST elevation [place] (NSTEMI): Code(s): I21.4 - Non-ST elevation (NSTEMI) myocardial infarction Status: Acute (3) Diabetes mellitus: Code(s): E11.9 - Type 2 diabetes mellitus without complications Status: Acute (4) Mixed hyperlipidemia: Code(s): E78.2 - Mixed hyperlipidemia Status: Acute (5) Benign essential hypertension: Code(s): I10 - Essential (primary) hypertension Status: Acute (6) Nausea & vomiting: Code(s): R11.2 - Nausea with vomiting, unspecified Status: Acute DS: Summary Hospital Course Reason for hospitalization: 53yo female with DM, HLD and GERD here for chest pain. Please see H&P for details Hospital Course: Patient presents with acute onset of chest pain she describes as stabbing. EKG shows normal sinus rhythm with left anterior fascicular block, age-indeterminate anterior lateral infarct and T-wave inversion in lateral and inferior leads. Troponin elevated to 2.6. CTA chest showing no PE or dissection noted. She was given aspirin, metoprolol and Lipitor. Cardiology consulted and patient underwent LHC showing clean coronaries but the LV is mildly enlarged and there is a large region of akinesia involving the mid to apical anterior wall, apex and the apical half of the inferior wall with an EF of 35%. This pattern of LV dysfunction with the absence of coronary disease suggests takotsubo cardiomyopathy. Echo showing wall motion abnormalities consistent with takotsubo cardiomyopathy with EF of 25-30% and grade 1 diastolic dysfunction. She was started on Torpol XL and Losartan. Patient arranged to be home with [facility]. Elevated Troponin Type II [place] related to above. A1c 6.6. Patient with DM. The patient's blood glucose was monitored with AccuCheks covering with sliding scale. Hypoglycemia protocol was available as needed. TG 164, TC 142, LDL 82 and HDL 32. We continued Lipitor. BP elevated on admission to 164/92. No dissection by CTA. Patient's blood pressure was monitored and it became better controlled. Patient with nausea, vomiting and diarrhea a few days prior to admission. Symptoms appeared to resolve then recurred on the evening prior to admission. No risk factors to suggest C diff. She probably has a viral gastroenteritis or related to medications. COVID negative. She overall did well and was able to be discharged home on 05/02/24. Phase II cardiac rehab will be ordered at the follow-up visit. Status at Discharge Cognitive/behavioral status at discharge: stable Time Spent with Patient Time attestation: Total time spent providing and/or coordinating discharge services: 35 minutes Time spent: Greater than 30 minutes Exam Narrative: AF 97.5 131/87 82 18 97% ra Gen - NARD Chest - CTA bilaterally, nml RR CV - RRR. S1-S2. Abd - soft, NT/ND Ext - no pedal edema. Rt groin site dressing clean and dry Neuro - nonfocal Psych - normal mood and affect Skin - warm and dry. DS: Data Data Completed and Pending Labs on day of discharge: Labs from last 24 hours 05/02/24 05/02/24 05/02/24 11:20 07:41 03:41 APTT 31.5 POC Capillary Glucose 79 96 05/01/24 05/01/24 21:01 15:41 APTT POC Capillary Glucose 117 H 102 Discharge Plan Discharge Attending physician on discharge: Macario Ha Consulting providers: Timo Holder; Susy Decker Discharging Clinician: Macario Ha Anticipated Discharge Date/Time: 05/02/24 14:34 Patient Disposition: Home, Self-Care Activity: other - see discharge instructions Diet: diabetic Discharge Instructions: [facility]
[2024-05-03 11:26] LABS: Hemoglobin A1C 5.8 % (<5.7)
== END 2024-05-02 15:00 | disposition home or self-care (01) | DRG 282 ==
LOC: ANHED 07:00 → ANHIMU 05-01 11:20
PROVIDERS: Emergency Medicine; Internal Medicine Cardiovascular Disease; Specialist; Admitting Provider Internal Medicine; Emergency Provider Emergency Medicine; PCP Family Medicine; Visit Provider Internal Medicine
PROC: 4A023N7 Measurement of Cardiac Sampling and Pressure, Left Heart, Percutaneous Approach (ICD-10-PCS; CPT 93452; principal; 2024-05-01 13:00)
PROC: 4A023N7 Measurement of Cardiac Sampling and Pressure, Left Heart, Percutaneous Approach (ICD-10-PCS; 2024-05-01 13:00)
DX: I51.81 Takotsubo syndrome (principal); I21.A1 Myocardial infarction type 2; I44.4 Left anterior fascicular block; A08.4 Viral intestinal infection, unspecified; I10 Essential (primary) hypertension; K21.9 Gastro-esophageal reflux disease without esophagitis; E78.2 Mixed hyperlipidemia; E11.9 Type 2 diabetes mellitus without complications; F41.9 Anxiety disorder, unspecified; Z90.721 Acquired absence of ovaries, unilateral; Z95.1 Presence of aortocoronary bypass graft
CPT/HCPCS: 36415; 71045; 71275; 74174; 80053; 80061; 82948; 83036; 83690; 83735; 84484; 85025; 85610; 85730; 87635; 93005; 93306; 93458; 96361; 96365; 96375; 99285; A9270; C1760; C1887; C1894; C8929; G0269; J1644; J1650; J2250; J2405; J2470; J3010; J7030; J7040; J7120; Q9957; Q9967